=== PATIENT | male | born 1970 | race Caucasian/White ===

== ENCOUNTER 2024-06-12 11:55 | Inpatient (IN) ==
--- NOTE | 2024-06-12 12:21 | Emergency Department Note ---
Impression & Plan Chest pain, Hypertriglyceridemia, Liver mass, Elevated LFTs, Abnormal EKG ED Provider Note NAME: KIKE HARRINGTON AGE: 53 SEX: M : 1970 ARRIVES VIA: Walk-In INFORMANT: Patient, ED PROVIDER(S): Jose Francisco Ceballos DO CHIEF COMPLAINT: Chest Pain HPI: The patient is a 53-year-old male who presented to the emergency department directly from [facility] cardiology for an evaluation of chest pain. The patient describes anterior chest pain that goes into his jaw. He denies having any shortness of breath or leg swelling. He does feel very dizzy and lightheaded almost as though he may fall or pass out. The patient denies having any cardiac artery disease. He does have a history of hypertension and atrial fibrillation. He states he been compliant his outpatient medications. The patient went to see cardiology today and was sent directly to the emergency department ROS: See above HPI for pertinent positives & negatives. A total of 10 systems reviewed and were otherwise negative. PAST MEDICAL HISTORY: See Below PAST SURGICAL HISTORY: See Below FAMILY HISTORY: See Below SOCIAL HISTORY: See Below HOME MEDICATIONS: See Below ALLERGIES: See Below VITALS: See Below PHYSICAL EXAMINATION: GENERAL: Patient is awake alert in no acute distress patient is resting comfortably and showing no signs of anxiety EYES: The conjunctivae are clear. The pupils are round and reactive. EARS, NOSE, MOUTH AND THROAT: The nose is without any evidence of any deformity. NECK: The neck is nontender and supple. RESPIRATORY: Normal respiratory effort is noted there is no evidence of wheezing rhonchi or rales CARDIOVASCULAR: Regular rate and rhythm noted there no murmurs rubs or gallops normal S1 normal S2. GASTROINTESTINAL: The abdomen is soft. Abdomen is nontender. MUSCULOSKELETAL/EXTREMITIES: There is no evidence of gross deformity full range of motion is noted in the hips and shoulders. SKIN: There is no obvious evidence of any rash. There are no petechiae, pallor or cyanosis noted. NEUROLOGIC: Patient is awake alert and oriented x3 MEDICAL DECISION MAKING: The patient is a 53-year-old male who presented to the emergency department for an evaluation of chest pain. The patient was found to have hypertriglyceridemia. The patient was found to have signs of pancreatitis. The patient was having chest pain and was referred to the emergency department for further evaluation. Patient's EKG did show some T wave abnormalities. I discussed the patient's laboratory and radiographic studies with him. Given his findings I discussed his condition with the on-call [facility] hospitalist group. They have agreed to evaluate patient in the emergency department for further management and disposition. The patient was treated with pain medication emergency department. He was reevaluated multiple times. I discussed his condition with the [facility] supplier manager as well. Triage Nursing notes reviewed. Prior medical records reviewed Vital Signs: reviewed and remarkable for elevated blood pressure. Differential diagnosis: Cardiac ischemia, aortic dissection, pulmonary embolism, pneumothorax, pneumonia, pericarditis, myocarditis, esophageal rupture, GERD, cholecystitis, pancreatitis, musculoskeletal, as well as other pathologies. ER treatment provided: See below Diagnostics interpreted by me: ECG: EKG was obtained in the emergency department. My interpretation is normal sinus rhythm at [address] depressions were noted in the anterior and the lateral leads with T wave inversions noted in anterior leads. Cardiac Monitoring: An order was placed for continuous cardiac monitoring. The monitor shows a rate of 80 bpm with sinus rhythm. Laboratory studies: As stated above and show below. Imaging studies: See below. Radiographic imaging was reviewed by myself Consultation(s): I discussed this case with the on-call [facility] hospitalist. They have agreed to evaluate the patient in the emergency department. I discussed this case with Dr. Delatorre who is on-call for the [facility] cardiology group. Past Med/Surg History Problem List (Updated 06/12/24 @ 19:08 by Jyoti Villalpando PA-C) Elevated LFTs Thyroid nodule Liver mass Hypertriglyceridemia Abdominal pain Chest pain Nasal valve collapse Chronic rhinitis Medical History (Updated 06/12/24 @ 19:08 by Jyoti Villalpando PA-C) Obesity PTSD (post-traumatic stress disorder) PAF (paroxysmal atrial fibrillation) JACOB (obstructive sleep apnea) Hypertension Surgical History (Updated 06/12/24 @ 19:00 by Jyoti Villalpando PA-C) H/O gastric bypass Family History (Updated 06/12/24 @ 19:01 by Jyoti Villalpando PA-C) Father Heart disease Mother Diabetes Social History Smoking Status: Never smoker Hx Alcohol Use: Yes (12 beers daily) Hx Substance Use: No Feels Safe at Home: Yes Allergies Allergies Allergy/AdvReac Type Severity Reaction Status Date / Time No Known Allergies Allergy Unverified 06/12/24 17:14 Home Meds Home Medications Medication Instructions Recorded Confirmed apixaban 5 mg tablet (Eliquis) 5 mg PO BID 11/27/23 06/12/24 bupropion HCl 150 mg tablet,12 hr 150 mg PO DAILY 11/27/23 06/12/24 sustained-release (Wellbutrin SR) diltiazem HCl 120 mg capsule,24 120 mg PO DAILY 11/27/23 06/12/24 hr,extended release nebivolol 20 mg tablet (Bystolic) 20 mg PO DAILY 11/27/23 06/12/24 fenofibrate nanocrystallized 145 145 mg PO QAM 06/12/24 06/12/24 mg tablet levothyroxine 50 mcg tablet 50 mcg PO QAM 06/12/24 06/12/24 omeprazole 20 mg capsule,delayed 20 mg PO QAM 06/12/24 06/12/24 release Previous Rx's Medication Instructions Recorded azelastine 137 mcg (0.1 %) nasal 2 spray intranasal BID PRN nasal 11/27/23 spray congestion #30 mL fluticasone propionate 50 2 spray intranasal DAILY #16 grams 11/27/23 mcg/actuation nasal spray,suspension ipratropium bromide 21 mcg (0.03 2 spray intranasal TID PRN 11/27/23 %) nasal spray postnasal drip #30 mL Results & Data (ED) Vital Signs Vital Signs - 24 hr 06/12/24 12:00 06/12/24 12:45 06/12/24 12:45 Temperature 37.1 C Temperature Source Oral Pulse Rate 85 81 81 Pulse Rate from SpO2 Sensor 80 Respiratory Rate 18 21 Respiratory Effort / Characteristics Non-Labored Spontaneous Respiratory Depth Normal Respiratory Pattern Regular Blood Pressure 185/135 H Blood Pressure Mean 151 Blood Pressure Position Sitting Pulse Oximetry 96 100 Oxygen Delivery Method Room Air Sepsis Recent Fever Within 48 Hours No Sepsis New/Unexplained Change in Mental Status No Sepsis Action Taken by Nursing No Action Required 06/12/24 12:54 06/12/24 13:00 06/12/24 13:00 Temperature Temperature Source Pulse Rate 84 Pulse Rate from SpO2 Sensor 83 Respiratory Rate 15 Respiratory Effort / Characteristics Respiratory Depth Respiratory Pattern Blood Pressure 139/92 139/92 Blood Pressure Mean 106 106 Blood Pressure Position Pulse Oximetry 97 Oxygen Delivery Method Sepsis Recent Fever Within 48 Hours Sepsis New/Unexplained Change in Mental Status Sepsis Action Taken by Nursing 06/12/24 13:03 06/12/24 13:30 06/12/24 13:30 Temperature Temperature Source Pulse Rate 90 86 Pulse Rate from SpO2 Sensor 90 85 Respiratory Rate 19 16 Respiratory Effort / Characteristics Respiratory Depth Respiratory Pattern Blood Pressure 148/83 H Blood Pressure Mean 101 Blood Pressure Position Pulse Oximetry 96 96 Oxygen Delivery Method Sepsis Recent Fever Within 48 Hours Sepsis New/Unexplained Change in Mental Status Sepsis Action Taken by Nursing 06/12/24 13:45 06/12/24 13:47 06/12/24 13:47 Temperature Temperature Source Pulse Rate 86 Pulse Rate from SpO2 Sensor 86 Respiratory Rate 22 Respiratory Effort / Characteristics Respiratory Depth Respiratory Pattern Blood Pressure Blood Pressure Mean Blood Pressure Position Pulse Oximetry 94 Oxygen Delivery Method Room Air Room Air Sepsis Recent Fever Within 48 Hours Sepsis New/Unexplained Change in Mental Status Sepsis Action Taken by Nursing 06/12/24 14:15 06/12/24 14:21 06/12/24 14:36 Temperature Temperature Source Pulse Rate 84 83 82 Pulse Rate from SpO2 Sensor 83 Respiratory Rate 16 13 Respiratory Effort / Characteristics Respiratory Depth Respiratory Pattern Blood Pressure Blood Pressure Mean Blood Pressure Position Pulse Oximetry 96 Oxygen Delivery Method Sepsis Recent Fever Within 48 Hours Sepsis New/Unexplained Change in Mental Status Sepsis Action Taken by Nursing 06/12/24 14:42 06/12/24 14:57 06/12/24 15:00 Temperature Temperature Source Pulse Rate 83 83 Pulse Rate from SpO2 Sensor 85 84 Respiratory Rate 19 13 Respiratory Effort / Characteristics Respiratory Depth Respiratory Pattern Blood Pressure 135/83 Blood Pressure Mean 102 Blood Pressure Position Pulse Oximetry 96 95 Oxygen Delivery Method Sepsis Recent Fever Within 48 Hours Sepsis New/Unexplained Change in Mental Status Sepsis Action Taken by Nursing 06/12/24 15:30 06/12/24 15:39 06/12/24 15:42 Temperature Temperature Source Pulse Rate 85 86 Pulse Rate from SpO2 Sensor 85 86 Respiratory Rate 15 17 Respiratory Effort / Characteristics Respiratory Depth Respiratory Pattern Blood Pressure 155/95 H Blood Pressure Mean 132 Blood Pressure Position Pulse Oximetry 96 98 Oxygen Delivery Method Sepsis Recent Fever Within 48 Hours Sepsis New/Unexplained Change in Mental Status Sepsis Action Taken by Nursing 06/12/24 15:51 06/12/24 15:57 06/12/24 16:01 Temperature Temperature Source Pulse Rate 86 83 Pulse Rate from SpO2 Sensor 85 83 Respiratory Rate 18 15 Respiratory Effort / Characteristics Respiratory Depth Respiratory Pattern Blood Pressure 167/101 H Blood Pressure Mean 116 Blood Pressure Position Pulse Oximetry 99 96 Oxygen Delivery Method Sepsis Recent Fever Within 48 Hours Sepsis New/Unexplained Change in Mental Status Sepsis Action Taken by Nursing 06/12/24 16:27 06/12/24 16:30 06/12/24 16:47 Temperature Temperature Source Pulse Rate 84 84 Pulse Rate from SpO2 Sensor 84 Respiratory Rate 15 Respiratory Effort / Characteristics Respiratory Depth Respiratory Pattern Blood Pressure 165/91 H Blood Pressure Mean 107 Blood Pressure Position Pulse Oximetry 95 Oxygen Delivery Method Sepsis Recent Fever Within 48 Hours Sepsis New/Unexplained Change in Mental Status Sepsis Action Taken by Nursing 06/12/24 16:48 06/12/24 16:51 06/12/24 17:00 Temperature Temperature Source Pulse Rate 85 84 Pulse Rate from SpO2 Sensor 86 84 Respiratory Rate 14 13 Respiratory Effort / Characteristics Respiratory Depth Respiratory Pattern Blood Pressure 169/91 H Blood Pressure Mean 118 Blood Pressure Position Pulse Oximetry 95 96 Oxygen Delivery Method Sepsis Recent Fever Within 48 Hours Sepsis New/Unexplained Change in Mental Status Sepsis Action Taken by Nursing 06/12/24 17:00 06/12/24 17:00 06/12/24 17:00 Temperature Temperature Source Pulse Rate Pulse Rate from SpO2 Sensor Respiratory Rate Respiratory Effort / Characteristics Respiratory Depth Respiratory Pattern Blood Pressure 169/91 H 169/91 H 169/91 H Blood Pressure Mean 118 118 118 Blood Pressure Position Pulse Oximetry Oxygen Delivery Method Sepsis Recent Fever Within 48 Hours Sepsis New/Unexplained Change in Mental Status Sepsis Action Taken by Nursing 06/12/24 17:00 06/12/24 17:03 06/12/24 17:12 Temperature Temperature Source Pulse Rate 86 88 Pulse Rate from SpO2 Sensor 89 91 H Respiratory Rate 13 13 Respiratory Effort / Characteristics Respiratory Depth Respiratory Pattern Blood Pressure 169/91 H Blood Pressure Mean 118 Blood Pressure Position Pulse Oximetry 95 93 Oxygen Delivery Method Sepsis Recent Fever Within 48 Hours Sepsis New/Unexplained Change in Mental Status Sepsis Action Taken by Nursing 06/12/24 17:18 06/12/24 17:31 06/12/24 17:31 Temperature Temperature Source Pulse Rate 90 Pulse Rate from SpO2 Sensor 91 H Respiratory Rate Respiratory Effort / Characteristics Respiratory Depth Respiratory Pattern Blood Pressure 170/94 H 170/94 H Blood Pressure Mean 117 117 Blood Pressure Position Pulse Oximetry 96 Oxygen Delivery Method Sepsis Recent Fever Within 48 Hours Sepsis New/Unexplained Change in Mental Status Sepsis Action Taken by Nursing 06/12/24 17:31 06/12/24 17:48 06/12/24 17:51 Temperature Temperature Source Pulse Rate 90 88 Pulse Rate from SpO2 Sensor 92 H 88 Respiratory Rate 18 17 Respiratory Effort / Characteristics Respiratory Depth Respiratory Pattern Blood Pressure 170/94 H Blood Pressure Mean 117 Blood Pressure Position Pulse Oximetry 96 96 Oxygen Delivery Method Sepsis Recent Fever Within 48 Hours Sepsis New/Unexplained Change in Mental Status Sepsis Action Taken by Intermediate Medications Current Medication List: was personally reviewed by me Laboratory Data Attestation: I reviewed the patient's lab results. 06/12/24 12:21 06/12/24 16:39 Lab Results 06/12/24 06/12/24 06/12/24 Range/Units 12:21 14:30 16:39 WBC 3.79 L (4.8-10.8) K/ul RBC 3.96 L (4.70-6.10) M/uL Hgb 13.6 L (14.0-18.0) g/dl Hct 36.5 L (42.0-52.0) % MCV 92.2 (80.0-100.0) fL MCH 34.3 H (25.0-34.0) pg MCHC 37.3 H (32.0-36.0) g/dL RDW Std Deviation 52.6 H (36.4-46.3) fL RDW Coeff of Ace 15.6 H (11.5-14.5) % Plt Count 233 (130-400) K/uL MPV 9.3 L (9.4-12.4) fL Immature Gran % (Auto) 0.3 % Neut % (Auto) 50.9 % Lymph % (Auto) 36.7 % Webb % (Auto) 10.8 % Eos % (Auto) 0.5 % Baso % (Auto) 0.8 % Neut # (Auto) 1.93 (1.40-6.50) K/uL Lymph # (Auto) 1.39 (1.20-3.40) K/uL Webb # (Auto) 0.41 (0.11-0.59) K/uL Eos # (Auto) 0.02 (0.00-0.50) K/uL Baso # (Auto) 0.03 (0.00-0.20) K/uL Immature Gran # (Auto) 0.01 (0.01-0.20) K/uL Target Cells 2+ PT 11.2 (9.0-12.0) Seconds INR 1.0 (0.9-1.1) APTT 28 (21-31) Seconds PTT Ratio 1.0 Sodium Cancelled Cancelled 132 L Potassium Cancelled Cancelled 4.0 Chloride Cancelled Cancelled 94 L Carbon Dioxide Cancelled Cancelled 28 Anion Gap Cancelled Cancelled 10 BUN Cancelled Cancelled 13 Creatinine Cancelled Cancelled 0.87 Est Cr Clr Drug Dosing Cancelled Cancelled Not Reportable eGFR Cancelled Cancelled 102.54 BUN/Creatinine Ratio Cancelled Cancelled 14.9 Glucose Cancelled Cancelled 103 H Calcium Cancelled Cancelled 8.7 Total Bilirubin Cancelled Cancelled 1.8 H AST Cancelled Cancelled 158 H ALT Cancelled Cancelled 66 H Alkaline Phosphatase Cancelled Cancelled 112 H Troponin I High Sens Cancelled 3.6 Total Protein Cancelled Cancelled 6.3 Albumin Cancelled Cancelled 3.1 L Globulin Cancelled Cancelled 3.2 Albumin/Globulin Ratio Cancelled Cancelled 1.0 Lipase Cancelled 149 H 06/12/24 06/12/24 Range/Units 18:39 18:39 WBC (4.8-10.8) K/ul RBC (4.70-6.10) M/uL Hgb (14.0-18.0) g/dl Hct (42.0-52.0) % MCV (80.0-100.0) fL MCH (25.0-34.0) pg MCHC (32.0-36.0) g/dL RDW Std Deviation (36.4-46.3) fL RDW Coeff of Ace (11.5-14.5) % Plt Count (130-400) K/uL MPV (9.4-12.4) fL Immature Gran % (Auto) % Neut % (Auto) % Lymph % (Auto) % Webb % (Auto) % Eos % (Auto) % Baso % (Auto) % Neut # (Auto) (1.40-6.50) K/uL Lymph # (Auto) (1.20-3.40) K/uL Webb # (Auto) (0.11-0.59) K/uL Eos # (Auto) (0.00-0.50) K/uL Baso # (Auto) (0.00-0.20) K/uL Immature Gran # (Auto) (0.01-0.20) K/uL Target Cells PT (9.0-12.0) Seconds INR (0.9-1.1) APTT (21-31) Seconds PTT Ratio Sodium Potassium Chloride Carbon Dioxide Anion Gap BUN Creatinine Est Cr Clr Drug Dosing eGFR BUN/Creatinine Ratio Glucose Calcium Total Bilirubin AST ALT Alkaline Phosphatase Troponin I High Sens 4.5 Cancelled Total Protein Albumin Globulin Albumin/Globulin Ratio Lipase Administered Medications Lactated Ringer's (Lr) 1,000 mls @ 200 mls/hr IV .Q5H JOSIAH Stop: 06/13/24 18:44 Last Admin: 06/12/24 18:54 Dose: 200 mls/hr Documented By: NAOMIE Discontinued Medications Aspirin (Aspirin Chew 324 Mg) 324 mg PO NOW STA Stop: 06/12/24 12:19 Last Admin: 06/12/24 12:52 Dose: 324 mg Documented By: NAOMIE Pantoprazole Sodium (Protonix) 40 mg in 10 mls @ 5 mls/min IV NOW ONE Stop: 06/12/24 14:08 Last Admin: 06/12/24 14:15 Dose: 5 mls/min Documented By: NAOMIE Famotidine (Pepcid 20mg Iv Push) 20 mg in 5 mls @ 2.5 mls/min IV NOW STA Stop: 06/12/24 14:08 Last Admin: 06/12/24 14:15 Dose: 2.5 mls/min Documented By: NAOMIE Thiamine HCl 100 mg/ Syringe 10 mls @ 2 mls/min IV NOW STA Stop: 06/12/24 18:45 Last Admin: 06/12/24 19:43 Dose: 2 mls/min Documented By: KALLI Folic Acid 1 mg/ Syringe 10 mls @ 5 mls/min IV NOW STA Stop: 06/12/24 18:42 Last Admin: 06/12/24 19:42 Dose: 5 mls/min Documented By: KALLI Ioversol (Optiray 320 125ml) 118 ml IV ONCE ONE Stop: 06/12/24 16:11 Last Admin: 06/12/24 16:10 Dose: 118 ml Documented By: JONAH Lorazepam (Lorazepam 1 Mg Tab) 1 mg SL NOW STA Stop: 06/12/24 18:40 Last Admin: 06/12/24 18:48 Dose: 1 mg Documented By: NAOMIE Morphine Sulfate (Morphine Sulfate 4 Mg/Ml 1 Ml Carp\Vial) 4 mg IV NOW STA Stop: 06/12/24 12:19 Last Admin: 06/12/24 12:52 Dose: 4 mg Documented By: NAOMIE Nitroglycerin (Nitroglycerin Sl 0.4 Mg/Tab Tab) 0.4 mg SL NOW STA Stop: 06/12/24 12:19 Last Admin: 06/12/24 12:52 Dose: 0.4 mg Documented By: NAOMIE Ondansetron HCl (Ondansetron Inj 2 Mg/Ml 2 Ml Vial) 4 mg IV NOW STA Stop: 06/12/24 12:19 Last Admin: 06/12/24 12:52 Dose: 4 mg Documented By: NAOMIE Imaging Data Attestation: I personally reviewed and interpreted this imaging study as follows: My Impression: 1 view chest x-ray was obtained in the emergency department. My interpretation is no free air or definite infiltrate, final report below. Radiologist's Impression: Chest X-Ray 06/12/24 12:03 XR chest 1V portable CLINICAL HISTORY: Chest pain, nonspecific COMPARISON STUDY: None FINDINGS: Heart size and pulmonary vasculature are normal. No effusion, consolidation, or pneumothorax. IMPRESSION: No acute findings. ACT 112: Negative or not required by law. Electronically signed by: Trey Coronado M.D. 06/12/2024 12:33 PM Abdomen/Pelvis CT 06/12/24 14:03 EXAM: CT Angiography Chest and CT Abdomen and Pelvis With Intravenous Contrast INDICATION: Pain TECHNIQUE: Axial computed tomographic angiography images of the chest and axial computed tomography images of the abdomen and pelvis with intravenous contrast. Sagittal and coronal reformatted images were created and reviewed. This CT exam was performed using one or more of the following dose reduction techniques: automated exposure control, adjustment of the mA and/or kV according to patient size, and/or use of iterative reconstruction technique. MIP reconstructed images were created and reviewed. CONTRAST: 118ml of Optiray 320 was administered intravenously. COMPARISON: No relevant prior studies available. FINDINGS: CHEST: Aorta: No acute change noted. No thoracic aortic aneurysm or dissection. Pulmonary arteries: No significant abnormality noted. No pulmonary embolism is identified. Great vessels of aortic arch: No acute change noted. No dissection. No arterial occlusion or significant stenosis. Lungs and pleural spaces: No abnormality noted. No mass. No consolidation. No significant effusion. No pneumothorax. Heart: No abnormality noted. No cardiomegaly. No significant pericardial effusion. Thyroid: There is a 2.0 x 1.7 cm right thyroid nodule. ABDOMEN: Liver: There is marked fatty change of the liver. There is an irregular lobulated enhancing mass in the left lobe measuring 6.2 cm transverse by 3.9 cm AP by 5.5 cm long. Gallbladder and bile ducts: No abnormality noted. No calcified stones. No ductal dilation. Pancreas: No abnormality noted. No ductal dilation. No mass. Spleen: No abnormality noted. No splenomegaly. Adrenals: There is a 1.4 x 1.2 cm left adrenal nodule with density measurements slightly greater than expected for an adenoma. The right appears normal. Kidneys and ureters: Simple left renal cyst/s. No simple cyst follow-up necessary. Right kidney appears normal. No renal stone, hydronephrosis or perinephric fluid. The right kidney appears normal. No solid mass. Stomach and bowel: Postoperative changes of the stomach noted. Staple lines are well defined without thickening or adjacent inflammation. No intestinal obstruction. PELVIS: Appendix: Well seen and appears normal. Bladder: There is mild thickening of the urinary bladder which is incompletely distended. Reproductive: No significant abnormality noted. CHEST, ABDOMEN and PELVIS: Intraperitoneal space: No abnormality noted. No significant fluid collection. No free air. Bones/joints: Degenerative changes noted throughout the spine. No acute osseous abnormality seen. Soft tissues: There are small bilateral fat containing inguinal hernias. Lymph nodes: No abnormality noted. No enlarged lymph nodes. IMPRESSION: 1. Left hepatic lobe mass concerning for neoplasm. 2. No pulmonary embolus5 or aortic dissection. 3. There is a 2.0 x 1.7 cm right thyroid nodule. Ultrasound recommended if not already known. 4. 1.4 cm greatest diameter left adrenal nodule probably an adenoma but somewhat more dense than typical. If there is no history of malignancy consider a follow-up low dose, non-contrast adrenal CT or chemical-shift adrenal MRI in 12 months. If there is a history of malignancy recommend a low dose, non-emergent, non-contrast adrenal CT or chemical-shift adrenal MRI follow-up study. 5. There is mild thickening of the urinary bladder which is incompletely distended. Correlate with urinalysis for cystitis. ACT 112: Negative or not required by law. Electronically signed by Ghislaine Jasmine 06-12-2024 4:36 PM Chest CTA 06/12/24 14:03 EXAM: CT Angiography Chest and CT Abdomen and Pelvis With Intravenous Contrast INDICATION: Pain TECHNIQUE: Axial computed tomographic angiography images of the chest and axial computed tomography images of the abdomen and pelvis with intravenous contrast. Sagittal and coronal reformatted images were created and reviewed. This CT exam was performed using one or more of the following dose reduction techniques: automated exposure control, adjustment of the mA and/or kV according to patient size, and/or use of iterative reconstruction technique. MIP reconstructed images were created and reviewed. CONTRAST: 118ml of Optiray 320 was administered intravenously. COMPARISON: No relevant prior studies available. FINDINGS: CHEST: Aorta: No acute change noted. No thoracic aortic aneurysm or dissection. Pulmonary arteries: No significant abnormality noted. No pulmonary embolism is identified. Great vessels of aortic arch: No acute change noted. No dissection. No arterial occlusion or significant stenosis. Lungs and pleural spaces: No abnormality noted. No mass. No consolidation. No significant effusion. No pneumothorax. Heart: No abnormality noted. No cardiomegaly. No significant pericardial effusion. Thyroid: There is a 2.0 x 1.7 cm right thyroid nodule. ABDOMEN: Liver: There is marked fatty change of the liver. There is an irregular lobulated enhancing mass in the left lobe measuring 6.2 cm transverse by 3.9 cm AP by 5.5 cm long. Gallbladder and bile ducts: No abnormality noted. No calcified stones. No ductal dilation. Pancreas: No abnormality noted. No ductal dilation. No mass. Spleen: No abnormality noted. No splenomegaly. Adrenals: There is a 1.4 x 1.2 cm left adrenal nodule with density measurements slightly greater than expected for an adenoma. The right appears normal. Kidneys and ureters: Simple left renal cyst/s. No simple cyst follow-up necessary. Right kidney appears normal. No renal stone, hydronephrosis or perinephric fluid. The right kidney appears normal. No solid mass. Stomach and bowel: Postoperative changes of the stomach noted. Staple lines are well defined without thickening or adjacent inflammation. No intestinal obstruction. PELVIS: Appendix: Well seen and appears normal. Bladder: There is mild thickening of the urinary bladder which is incompletely distended. No stones or gas. Reproductive: No significant abnormality noted. CHEST, ABDOMEN and PELVIS: Intraperitoneal space: No abnormality noted. No significant fluid collection. No free air. Bones/joints: Degenerative changes noted throughout the spine. No acute osseous abnormality seen. Soft tissues: There are small bilateral fat containing inguinal hernias. Lymph nodes: No abnormality noted. No enlarged lymph nodes. IMPRESSION: 1. Left hepatic lobe mass concerning for neoplasm. 2. No pulmonary embolus or aortic dissection. 3. There is a 2.0 x 1.7 cm right thyroid nodule. Ultrasound recommended if not already known. 4. 1.4 cm greatest diameter left adrenal nodule probably an adenoma but somewhat more dense than typical. If there is no history of malignancy consider a follow-up low dose, non-contrast adrenal CT or chemical-shift adrenal MRI in 12 months. If there is a history of malignancy recommend a low dose, non-emergent, non-contrast adrenal CT or chemical-shift adrenal MRI follow-up study. 5. There is mild thickening of the urinary bladder which is incompletely distended. Correlate with urinalysis for cystitis. ACT 112: Negative or not required by law. Electronically signed by Ghislaine Jasmine 06-12-2024 4:36 PM Discharge Plan Visit Data Chief Complaint: Chest Pain Stated Complaint: HIGH BP, CHEST PAIN ED Provider: Jose Francisco Ceballos Discharge Problem: Chest pain, Hypertriglyceridemia, Liver mass, Elevated LFTs, Abnormal EKG Patient Disposition: Being Evaluated by Hospitalist Forms Stand Alone Forms: My [facility] Prescriptions Prescriptions: No Action diltiazem HCl 120 mg capsule,extended release 24 hr 120 mg PO DAILY Eliquis 5 mg tablet 5 mg PO BID nebivolol [Bystolic] 20 mg tablet 20 mg PO DAILY bupropion HCl [Wellbutrin SR] 150 mg tablet sustained-release 12 hr 150 mg PO DAILY azelastine 137 mcg (0.1 %) spray,non-aerosol 2 spray intranasal BID PRN (Reason: nasal congestion) Qty: 30 11RF Rx Instructions: administer into each nostril fluticasone propionate 50 mcg/actuation spray,suspension 2 spray intranasal DAILY Qty: 16 11RF Rx Instructions: administer into each nostril ipratropium bromide 21 mcg (0.03 %) spray,non-aerosol 2 spray intranasal TID PRN (Reason: postnasal drip) Qty: 30 11RF Rx Instructions: administer into each nostril levothyroxine 50 mcg tablet 50 mcg PO QAM omeprazole 20 mg capsule,delayed release(DR/EC) 20 mg PO QAM fenofibrate nanocrystallized 145 mg tablet 145 mg PO QAM Referrals Referrals: PCP,NO [Physician] -
--- NOTE | 2024-06-12 12:34 | XRay Report ---
XR chest 1V portable CLINICAL HISTORY: Chest pain, nonspecific COMPARISON STUDY: None FINDINGS: Heart size and pulmonary vasculature are normal. No effusion, consolidation, or pneumothora x. IMPRESSION: No acute findings. ACT 112: Negative or not required by law. Electronically signed by: Trey Coronado M.D. 06/12/2024 12:33 PM
[2024-06-12 12:46] LABS: Mean Platelet Volume 9.3 fL (9.4-12.4); Platelet Count 233 K/uL (130-400); White Blood Count 3.79 K/ul (4.8-10.8)
[2024-06-12] MEDS: ASPIRIN CHEW 324 MG PO STA (12:52)
[2024-06-12] MEDS: NITROGLYCERIN SL 0.4 MG/TAB TAB SL STA (12:52)
[2024-06-12] MEDS: ONDANSETRON INJ 2 MG/ML 2 ML VIAL IV STA (12:52)
[2024-06-12] MEDS: MoRPHine SULFATE 4 MG/ML 1 ML CARP\\VIAL IV STA (12:52)
[2024-06-12 13:16] LABS: Hematocrit (blood only) 36.5 % (42.0-52.0); Hemoglobin 13.6 g/dl (14.0-18.0); Mean Corpuscular Hemoglobin 34.3 pg (25.0-34.0); Mean Corpuscular Hgb Conc 37.3 g/dL (32.0-36.0); Mean Corpuscular Volume 92.2 fL (80.0-100.0); RDW Coefficient of Variation 15.6 % (11.5-14.5); RDW Standard Deviation 52.6 fL (36.4-46.3); Red Blood Count 3.96 M/uL (4.70-6.10)
[2024-06-12 13:20] LABS: Basophils # (auto) 0.03 K/uL (0.00-0.20); Basophils % (auto) 0.8 %; Eosinophils # (auto) 0.02 K/uL (0.00-0.50); Eosinophils % (auto) 0.5 %; Immature Granulocytes # (auto) 0.01 K/uL (0.01-0.20); Immature Granulocytes % (auto) 0.3 %; Lymphocytes # (auto) 1.39 K/uL (1.20-3.40); Lymphocytes % (auto) 36.7 %; Monocytes # (auto) 0.41 K/uL (0.11-0.59); Monocytes % (auto) 10.8 %; Neutrophils # (auto) 1.93 K/uL (1.40-6.50); Neutrophils % (auto) 50.9 %; Target Cells 2+
[2024-06-12] MEDS: FAMOTIDINE 20MG IV PUSH 20 MG/5 ML SYR IV STA (14:15)
[2024-06-12] MEDS: PANTOprazole 40 MG/10 ML SYR IV ONE (14:15)
[2024-06-12 15:55] LABS: Troponin I High Sensitivity 3.6 pg/ml (0-20)
[2024-06-12 16:07] LABS: Partial Thromboplastin Time 28 Seconds (21-31); Prothrombin Time 11.2 Seconds (9.0-12.0)
[2024-06-12] MEDS: OPTIRAY 320 125ml IV ONE (16:10)
--- NOTE | 2024-06-12 16:36 | CT Scan Report ---
EXAM: CT Angiography Chest and CT Abdomen and Pelvis With Intravenous Contrast INDICATION: Pain TECHNIQUE: Axial computed tomographic angiography images of the chest and axial computed tomography images of the abdomen and pelvis with intravenous contrast. Sagittal and coronal reformatted images were created and reviewed. This CT exam was performed using one or more of the following dose reduction techniques: automated exposure control, adjustment of the mA and/or kV according to patient size, and/or use of iterative reconstruction technique. MIP reconstructed images were created and reviewed. CONTRAST: 118ml of Optiray 320 was administered intravenously. COMPARISON: No relevant prior studies available. FINDINGS: CHEST: Aorta: No acute change noted. No thoracic aortic aneurysm or dissection. Pulmonary arteries: No significant abnormality noted. No pulmonary embolism is identified. Great vessels of aortic arch: No acute change noted. No dissection. No arterial occlusion or significant stenosis. Lungs and pleural spaces: No abnormality noted. No mass. No consolidation. No significant effusion. No pneumothorax. Heart: No abnormality noted. No cardiomegaly. No significant pericardial effusion. Thyroid: There is a 2.0 x 1.7 cm right thyroid nodule. ABDOMEN: Liver: There is marked fatty change of the liver. There is an irregular lobulated enhancing mass in the left lobe measuring 6.2 cm transverse by 3.9 cm AP by 5.5 cm long. Gallbladder and bile ducts: No abnormality noted. No calcified stones. No ductal dilation. Pancreas: No abnormality noted. No ductal dilation. No mass. Spleen: No abnormality noted. No splenomegaly. Adrenals: There is a 1.4 x 1.2 cm left adrenal nodule with density measurements slightly greater than expected for an adenoma. The right appears normal. Kidneys and ureters: Simple left renal cyst/s. No simple cyst follow-up necessary. Right kidney appears normal. No renal stone, hydronephrosis or perinephric fluid. The right kidney appears normal. No solid mass. Stomach and bowel: Postoperative changes of the stomach noted. Staple lines are well defined without thickening or adjacent inflammation. No intestinal obstruction. PELVIS: Appendix: Well seen and appears normal. Bladder: There is mild thickening of the urinary bladder which is incompletely distended. No stones or gas. Reproductive: No significant abnormality noted. CHEST, ABDOMEN and PELVIS: Intraperitoneal space: No abnormality noted. No significant fluid collection. No free air. Bones/joints: Degenerative changes noted throughout the spine. No acute osseous abnormality seen. Soft tissues: There are small bilateral fat containing inguinal hernias. Lymph nodes: No abnormality noted. No enlarged lymph nodes. IMPRESSION: 1. Left hepatic lobe mass concerning for neoplasm. 2. No pulmonary embolus or aortic dissection. 3. There is a 2.0 x 1.7 cm right thyroid nodule. Ultrasound recommended if not already known. 4. 1.4 cm greatest diameter left adrenal nodule probably an adenoma but somewhat more dense than typical. If there is no history of malignancy consider a follow-up low dose, non-contrast adrenal CT or chemical-shift adrenal MRI in 12 months. If there is a history of malignancy recommend a low dose, non-emergent, non-contrast adrenal CT or chemical-shift adrenal MRI follow-up study. 5. There is mild thickening of the urinary bladder which is incompletely distended. Correlate with urinalysis for cystitis. ACT 112: Negative or not required by law. Electronically signed by Ghislaine Jasmine 06-12-2024 4:36 PM
[2024-06-12 17:28] LABS: Albumin Level 3.1 gm/dl (3.4-5.0); Anion Gap 10 (3-11); Bilirubin,Total 1.8 mg/dl (0.2-1.0); Calcium 8.7 mg/dl (8.6-10.3); Carbon Dioxide 28 mmol/L (21-32); Chloride 94 mmol/L (98-107); Sodium 132 mmol/L (136-145)
[2024-06-12 17:34] LABS: Alanine Aminotransferase 66 U/L (7-52); Alkaline Phosphatase 112 U/L (34-104); Aspartate Aminotransferase 158 U/L (13-39); BUN Creatinine Ratio 14.9 (10-20); Blood Urea Nitrogen 13 mg/dl (6-23); Globulin 3.2 gm/dl (2.5-4.0); Glucose 103 mg/dl (70-99(Fasting)); Total Protein 6.3 gm/dl (6.0-8.3)
--- NOTE | 2024-06-12 17:49 | History & Physical Report ---
Date of Service June 12, 2024 Assessment & Plan (1) Chest pain: Plan: Patient is 53 year old male with PMH paroxysmal atrial fibrillation, anticoagulated on Eliquis, HTN, obesity s/p gastric bypass 03/2022, prior history DM II that has improved since weight loss and reports is now prediabetic, PTSD, JACOB, ETOH abuse presented to ER with c/o chest pain today. CT chest: No PE or aortic dissection. R/O ACS. Risk factors: HTN, hyperlipidemia, DM, obesity, FH CP is reported intermittent. Reports continued palpitations and reports anxiety. Current sinus rhythm on monitor without noted ectopy EKG sinus rhythm, no acute ST elevation In ER given aspirin 324mg po, 1 SL nitro and morphine 4mg IV with temporary reported improvement Monitor Vitals Repeat EKG in am Will trend troponin Echo Cardiology consult (2) Abdominal pain: (3) Elevated LFTs: Plan: Intermittent abdominal pain past week Denies current abdominal pain CT abd/pelvis: 1.Left hepatic lobe mass concerning for neoplasm. 2. No pulmonary embolus5 or aortic dissection. 3. There is a 2.0 x 1.7 cm right thyroid nodule. Ultrasound recommended if not already known. 4. 1.4 cm greatest diameter left adrenal nodule probably an adenoma but somewhat more dense than typical. If there is no history of malignancy consider a follow-up low dose, non-contrast adrenal CT or chemical-shift adrenal MRI in 12 months. If there is a history of malignancy recommend a low dose, non-emergent, non-contrast adrenal CT or chemical-shift adrenal MRI follow-up study. 5. There is mild thickening of the urinary bladder which is incompletely distended. Correlate with urinalysis for cystitis. Today Lipase: 149. T Bili: 1.8. AST:158. ALT: 66. Alk Phos: 112. INR: 1.0 (06/05/24: lipase: 534, T. bili: 1.7, AST: 499, ALT: 144, alk phos: 115) NPO LR CBC, CMP, lipase in am GI consult May need further abdominal imaging #ETOH Abuse Drinks 12 beers daily Alcohol withdrawal protocol with gabapentin and Ativan IV thiamine and IV folic acid for now. Plan to convert to oral and add multivitamin when able Seizure precautions (4) Hypertriglyceridemia: Plan: Outpatient labs 06/05/2024: Triglycerides >4425, total cholesterol: 1323, HDL <3, LDL: 55, lipase: 534, T. bili: 1.7, AST: 499, ALT: 144, alk phos: 115 Triglyceride level pending Continue fenofibrate for now NPO Discussed on phone with fire tender, Dr Delatorre who had been doing outpatient workup and reports had spoke to lipidologist at [facility] who discussed risk of pancreatitis and patient may require plasmapheresis if not improving (5) Liver mass: Plan: CT Abd/pelvis: 1.4 cm greatest diameter left adrenal nodule probably an adenoma but somewhat more dense than typical. If there is no history of malignancy consider a follow-up low dose, non-contrast adrenal CT or chemical-shift adrenal MRI in 12 months. If there is a history of malignancy recommend a low dose, non-emergent, non-contrast adrenal CT or chemical-shift adrenal MRI follow-up study. Will hold home Eliquis at this time in case biopsy GI consult Oncology consult (6) PAF (paroxysmal atrial fibrillation): Plan: Anticoagulated on Eliquis Current sinus rhythm Hold Eliquis Continue nebivolol, diltiazem (7) Hypertension: Plan: Continue nebivolol, diltiazem (8) JACOB (obstructive sleep apnea): Plan: CPAP HS (9) PTSD (post-traumatic stress disorder): Plan: Continue bupropion (10) Obesity: Plan: S/P gastric bypass Gained 45 pounds in past 9 months (11) Thyroid nodule: Plan: CT Chest: There is a 2.0 x 1.7 cm right thyroid nodule. will need non emergent ultrasound to follow up DVT Prophylaxis SCDs Admit PCU Full Code as per discussion with pt Follows with Dr Duke for routine care Pt was seen and care coordinated with Dr Wallace. See addendum I spent a total of 60 minutes reviewing notes, outpatient records, labs, medication, coordinating, documenting and providing care for this patient excluding time spent in the performance of separately billed services and excluding time spent by another provider/QHP. History of Present Illness Chief Complaint: abdominal pain, chest pain Primary Care Provider: Radha Duke DO Patient is 53 year old male with PMH paroxysmal atrial fibrillation, anticoagulated on Eliquis, HTN, obesity s/p gastric bypass 03/2022, prior history DM II that has improved since weight loss and reports is now prediabetic, PTSD, JACOB, ETOH abuse presented to ER with c/o chest pain today. Patient states this morning sitting at desk and he felt lightheaded like he was going pass out he also reported chest pain to left side of chest. He describes pain as ache and states pain is intermittent. He also reports some left jaw numbness sensation that is intermittent. CP rated 4 out of 10 on pain scale. He reports intermittent palpitations and feels palpitations occur with the chest pain. Patient also complains of upper abdominal pain for past week that he describes as "mild" and he feels like pain is intermittent. States always feels cold and has chills but denies any known fever. Reports past 9 months gained 45 pounds. Consumes 8-12 beers daily. Last drink was yesterday. In past history tremors with ETOH withdrawal and states drinks more and tremors resolve. Denies history seizure or hallucinations. Reports been eating hard candy recently. [facility] work. Family still in [place]. Denies fever, N/V/D/C, PLASENCIA, syncope, vision changes, neck pain, SOB, orthopnea, cough, sore throat, otalgia, rhinorrhea, paresthesias, weakness, extremity weakness, extremity edema, rashes, urinary symptoms. Denies history pancreatitis, DVT, PE. In ER given nitro and patient reports minimal relief and states given morphine and felt that helped with chest pain. States CP is intermittent. Currently rates pain 5 out of 10 on pain scale. Denies any jaw discomfort or numbness currently. States still feels like having palpitations and patient states that he feels anxious. He reports a lot of stress and anxiety with his job as well as being away from family. Per outpatient chart review was seen in cardiology clinic today 06/11/2024. He was started on fenofibrate couple of days ago. Outpatient labs 06/05/2024: Triglycerides >4425, total cholesterol: 1323, HDL <3, LDL: 55, lipase: 534, T. bili: 1.7, AST: 499, ALT: 144, alk phos: 115 WBC: 7.4 Hgb: 13.9 A1c: 5.9 TSH: 4.5, free T4: 0.7 Allergies Allergy/AdvReac Type Severity Reaction Status Date / Time No Known Allergies Allergy Unverified 06/12/24 17:14 Home Medications Medication Instructions Recorded Confirmed Type apixaban 5 mg tablet (Eliquis) 5 mg PO BID 11/27/23 06/12/24 History azelastine 137 mcg (0.1 %) nasal 2 spray intranasal BID PRN nasal 11/27/23 06/12/24 Rx spray congestion #30 mL bupropion HCl 150 mg tablet,12 hr 150 mg PO DAILY 11/27/23 06/12/24 History sustained-release (Wellbutrin SR) diltiazem HCl 120 mg capsule,24 120 mg PO DAILY 11/27/23 06/12/24 History hr,extended release fluticasone propionate 50 2 spray intranasal DAILY #16 grams 11/27/23 06/12/24 Rx mcg/actuation nasal spray,suspension ipratropium bromide 21 mcg (0.03 2 spray intranasal TID PRN 11/27/23 06/12/24 Rx %) nasal spray postnasal drip #30 mL nebivolol 20 mg tablet (Bystolic) 20 mg PO DAILY 11/27/23 06/12/24 History fenofibrate nanocrystallized 145 145 mg PO QAM 06/12/24 06/12/24 History mg tablet levothyroxine 50 mcg tablet 50 mcg PO QAM 06/12/24 06/12/24 History omeprazole 20 mg capsule,delayed 20 mg PO QAM 06/12/24 06/12/24 History release Past Med/Surg History Problem List (Updated 06/12/24 @ 19:08 by Jyoti Villalpando PA-C) Elevated LFTs Thyroid nodule Liver mass Hypertriglyceridemia Abdominal pain Chest pain Nasal valve collapse Chronic rhinitis Medical History (Updated 06/12/24 @ 19:08 by Jyoti Villalpando PA-C) Obesity PTSD (post-traumatic stress disorder) PAF (paroxysmal atrial fibrillation) JACOB (obstructive sleep apnea) Hypertension Surgical History (Updated 06/12/24 @ 19:00 by Jyoti Villalpando PA-C) H/O gastric bypass Family History (Updated 06/12/24 @ 19:01 by Jyoti Villalpando PA-C) Father Heart disease Mother Diabetes Social History Smoking Status: Never smoker Hx Alcohol Use: Yes (12 beers daily) Hx Substance Use: No Feels Safe at Home: Yes Review of Systems Review of Systems: All systems reviewed & are unremarkable except as noted in HPI & below Physical Exam Physical Exam: PE per Dr Wallace Results & Data Results & Data Vital Signs (Past 12 Hours) Vital Signs Temp Pulse Resp BP Pulse Ox O2 Del Method 06/12/24 16:51 84 13 96 06/12/24 16:48 85 14 95 06/12/24 16:47 84 06/12/24 16:30 165/91 H 06/12/24 16:27 84 15 95 06/12/24 16:01 167/101 H 06/12/24 15:57 83 15 96 06/12/24 15:51 86 18 99 06/12/24 15:42 86 17 98 06/12/24 15:39 85 15 96 06/12/24 15:30 155/95 H 06/12/24 15:00 135/83 06/12/24 14:57 83 13 95 06/12/24 14:42 83 19 96 06/12/24 14:36 82 13 96 06/12/24 14:21 83 16 06/12/24 14:15 84 06/12/24 13:47 Room Air 06/12/24 13:47 Room Air 06/12/24 13:45 86 22 94 06/12/24 13:30 148/83 H 06/12/24 13:30 86 16 96 06/12/24 13:03 90 19 96 06/12/24 13:00 139/92 06/12/24 13:00 139/92 06/12/24 12:54 84 15 97 06/12/24 12:45 81 21 100 06/12/24 12:45 81 06/12/24 12:00 37.1 C 85 18 185/135 H 96 Room Air Laboratory Results Short CBC 06/12/24 Range/Units 12:21 WBC 3.79 L (4.8-10.8) K/ul Hgb 13.6 L (14.0-18.0) g/dl Hct 36.5 L (42.0-52.0) % Plt Count 233 (130-400) K/uL BMP 06/12/24 06/12/24 06/12/24 12:21 14:30 16:39 Sodium Cancelled Cancelled 132 L Potassium Cancelled Cancelled 4.0 Chloride Cancelled Cancelled 94 L Carbon Dioxide Cancelled Cancelled 28 BUN Cancelled Cancelled 13 Creatinine Cancelled Cancelled 0.87 Glucose Cancelled Cancelled 103 H Calcium Cancelled Cancelled 8.7 Liver Function 06/12/24 06/12/24 06/12/24 Range/Units 12:21 14:30 16:39 Total Bilirubin Cancelled Cancelled 1.8 H AST Cancelled Cancelled 158 H ALT Cancelled Cancelled 66 H Alkaline Phosphatase Cancelled Cancelled 112 H Albumin Cancelled Cancelled 3.1 L Diagnostic Findings Chest X-Ray 06/12/24 12:03 XR chest 1V portable CLINICAL HISTORY: Chest pain, nonspecific COMPARISON STUDY: None FINDINGS: Heart size and pulmonary vasculature are normal. No effusion, consolidation, or pneumothorax. IMPRESSION: No acute findings. ACT 112: Negative or not required by law. Electronically signed by: Trey Coronado M.D. 06/12/2024 12:33 PM Abdomen/Pelvis CT 06/12/24 14:03 EXAM: CT Angiography Chest and CT Abdomen and Pelvis With Intravenous Contrast INDICATION: Pain TECHNIQUE: Axial computed tomographic angiography images of the chest and axial computed tomography images of the abdomen and pelvis with intravenous contrast. Sagittal and coronal reformatted images were created and reviewed. This CT exam was performed using one or more of the following dose reduction techniques: automated exposure control, adjustment of the mA and/or kV according to patient size, and/or use of iterative reconstruction technique. MIP reconstructed images were created and reviewed. CONTRAST: 118ml of Optiray 320 was administered intravenously. COMPARISON: No relevant prior studies available. FINDINGS: CHEST: Aorta: No acute change noted. No thoracic aortic aneurysm or dissection. Pulmonary arteries: No significant abnormality noted. No pulmonary embolism is identified. Great vessels of aortic arch: No acute change noted. No dissection. No arterial occlusion or significant stenosis. Lungs and pleural spaces: No abnormality noted. No mass. No consolidation. No significant effusion. No pneumothorax. Heart: No abnormality noted. No cardiomegaly. No significant pericardial effusion. Thyroid: There is a 2.0 x 1.7 cm right thyroid nodule. ABDOMEN: Liver: There is marked fatty change of the liver. There is an irregular lobulated enhancing mass in the left lobe measuring 6.2 cm transverse by 3.9 cm AP by 5.5 cm long. Gallbladder and bile ducts: No abnormality noted. No calcified stones. No ductal dilation. Pancreas: No abnormality noted. No ductal dilation. No mass. Spleen: No abnormality noted. No splenomegaly. Adrenals: There is a 1.4 x 1.2 cm left adrenal nodule with density measurements slightly greater than expected for an adenoma. The right appears normal. Kidneys and ureters: Simple left renal cyst/s. No simple cyst follow-up necessary. Right kidney appears normal. No renal stone, hydronephrosis or perinephric fluid. The right kidney appears normal. No solid mass. Stomach and bowel: Postoperative changes of the stomach noted. Staple lines are well defined without thickening or adjacent inflammation. No intestinal obstruction. PELVIS: Appendix: Well seen and appears normal. Bladder: There is mild thickening of the urinary bladder which is incompletely distended. Reproductive: No significant abnormality noted. CHEST, ABDOMEN and PELVIS: Intraperitoneal space: No abnormality noted. No significant fluid collection. No free air. Bones/joints: Degenerative changes noted throughout the spine. No acute osseous abnormality seen. Soft tissues: There are small bilateral fat containing inguinal hernias. Lymph nodes: No abnormality noted. No enlarged lymph nodes. IMPRESSION: 1. Left hepatic lobe mass concerning for neoplasm. 2. No pulmonary embolus5 or aortic dissection. 3. There is a 2.0 x 1.7 cm right thyroid nodule. Ultrasound recommended if not already known. 4. 1.4 cm greatest diameter left adrenal nodule probably an adenoma but somewhat more dense than typical. If there is no history of malignancy consider a follow-up low dose, non-contrast adrenal CT or chemical-shift adrenal MRI in 12 months. If there is a history of malignancy recommend a low dose, non-emergent, non-contrast adrenal CT or chemical-shift adrenal MRI follow-up study. 5. There is mild thickening of the urinary bladder which is incompletely distended. Correlate with urinalysis for cystitis. ACT 112: Negative or not required by law. Electronically signed by Ghislaine Jasmine 06-12-2024 4:36 PM Chest CTA 06/12/24 14:03 EXAM: CT Angiography Chest and CT Abdomen and Pelvis With Intravenous Contrast INDICATION: Pain TECHNIQUE: Axial computed tomographic angiography images of the chest and axial computed tomography images of the abdomen and pelvis with intravenous contrast. Sagittal and coronal reformatted images were created and reviewed. This CT exam was performed using one or more of the following dose reduction techniques: automated exposure control, adjustment of the mA and/or kV according to patient size, and/or use of iterative reconstruction technique. MIP reconstructed images were created and reviewed. CONTRAST: 118ml of Optiray 320 was administered intravenously. COMPARISON: No relevant prior studies available. FINDINGS: CHEST: Aorta: No acute change noted. No thoracic aortic aneurysm or dissection. Pulmonary arteries: No significant abnormality noted. No pulmonary embolism is identified. Great vessels of aortic arch: No acute change noted. No dissection. No arterial occlusion or significant stenosis. Lungs and pleural spaces: No abnormality noted. No mass. No consolidation. No significant effusion. No pneumothorax. Heart: No abnormality noted. No cardiomegaly. No significant pericardial effusion. Thyroid: There is a 2.0 x 1.7 cm right thyroid nodule. ABDOMEN: Liver: There is marked fatty change of the liver. There is an irregular lobulated enhancing mass in the left lobe measuring 6.2 cm transverse by 3.9 cm AP by 5.5 cm long. Gallbladder and bile ducts: No abnormality noted. No calcified stones. No ductal dilation. Pancreas: No abnormality noted. No ductal dilation. No mass. Spleen: No abnormality noted. No splenomegaly. Adrenals: There is a 1.4 x 1.2 cm left adrenal nodule with density measurements slightly greater than expected for an adenoma. The right appears normal. Kidneys and ureters: Simple left renal cyst/s. No simple cyst follow-up necessary. Right kidney appears normal. No renal stone, hydronephrosis or perinephric fluid. The right kidney appears normal. No solid mass. Stomach and bowel: Postoperative changes of the stomach noted. Staple lines are well defined without thickening or adjacent inflammation. No intestinal obstruction. PELVIS: Appendix: Well seen and appears normal. Bladder: There is mild thickening of the urinary bladder which is incompletely distended. No stones or gas. Reproductive: No significant abnormality noted. CHEST, ABDOMEN and PELVIS: Intraperitoneal space: No abnormality noted. No significant fluid collection. No free air. Bones/joints: Degenerative changes noted throughout the spine. No acute osseous abnormality seen. Soft tissues: There are small bilateral fat containing inguinal hernias. Lymph nodes: No abnormality noted. No enlarged lymph nodes. IMPRESSION: 1. Left hepatic lobe mass concerning for neoplasm. 2. No pulmonary embolus or aortic dissection. 3. There is a 2.0 x 1.7 cm right thyroid nodule. Ultrasound recommended if not already known. 4. 1.4 cm greatest diameter left adrenal nodule probably an adenoma but somewhat more dense than typical. If there is no history of malignancy consider a follow-up low dose, non-contrast adrenal CT or chemical-shift adrenal MRI in 12 months. If there is a history of malignancy recommend a low dose, non-emergent, non-contrast adrenal CT or chemical-shift adrenal MRI follow-up study. 5. There is mild thickening of the urinary bladder which is incompletely distended. Correlate with urinalysis for cystitis. ACT 112: Negative or not required by law. Electronically signed by Ghislaine Jasmine 06-12-2024 4:36 PM ECG Additional Comments: sinus rhythm, T wave inversion septal leads per my interpretation Supervising Physician Co-Signing Physician Notes 53-year-old male with PMH of paroxysmal A-fib, on Eliquis, HTN, obesity status post gastric bypass 03/2022, prior history of T2DM now has improved to prediabetes level since weight loss, PTSD presented to the ED with complaint of chest pain. Patient reports she has been having chest pain on and off, today he had chest pain while at rest in AM, 4/10 in intensity, aching nature, radiating to left jaw, somewhat relieved with morphine. Patient denies shortness of breath. Patient denies fever/nausea/vomiting/diarrhea/constipation/pain or burning with passing urine. Patient reports mild belly pain, mid upper belly, since last week, on and off, not present at bedside examination. Patient reports he drinks up to 12 packs of beers a day, denies tobacco use, denies recreational drug use. Patient reports she easily goes into withdrawal reaction but denies having withdrawal seizure in the past. Patient reports that he has gained 45 pounds in the last 9 months, he has been consuming more pizzas in the last 8 months, he has history of about 30 years of drinking alcohol products with small breaks in between. Patient reports feeling dehydrated. Patient reports he has moved into the area about 1 year ago and his first primary care visit was last week (per him) when his blood work was drawn. Admitting labs reviewed, WBC 3.79, hemoglobin 13.6, platelet 233K. Sodium 132, BUN and creatinine WNL, LFT [T. bili 1.8, AST 158, ALT 66, ALP 112], troponin 3.6, Lipase 149. CXR with no acute finding. CT abdomen pelvis and CTA chest: Left hepatic lobe mass concerning for neoplasm. No PE. Right thyroid nodule 2.0 x 1.7 cm. Left adrenal nodule 1.4 cm. OP Lab review: 06/05/24:TG > 4425, Na 132, lipase 534. AST 499, ALT 144, ALP 115, T bili 1.7 06/10/24: TG > 4425. lipase 121. AST 211, ALT 88, ALP 146, T bili 1.3. 07/02/22 ECHO : EF of 60-65%, Gr I diastolic dysfunction, Aortic root dilatation 4.1 cm. Active problems: Severe Hypertriglyceridemia: Triglyceride level as above, for now n.p.o. and IV fluids. Repeat TG level every 8 hours. Continue home fenofibrate. Consult GI. Per literature review, "Drug therapy for hypertriglyceridemia (aside from treatment of LDL-C) is deferred for most patients until the TG level is lowered to <=1000 mg/dL. Given the rapid rate of TG level lowering achievable with stringent dietary fat restriction, with close monitoring it may be possible to initiate drug therapy for hypertriglyceridemia within days." Chest pain rule out ACS: Troponin WNL, EKG with no acute ST-T changes. Prior echo as above. Trend troponin. Cardiology consult, echo. Likely pseudohyponatremia: Sodium level 132 in outpatient lab review and at admission. In the setting of hypertriglyceridemia. Continue to monitor BMP daily. Expect to improve w/ improvement in TG level. Transaminitis: Appears slowly getting better, see above. Get hepatitis panel, GI consult, admitting CTAP as above. Abnormal CTAP: Heme-onc consult to help guide with oncology workup. Hold Eliquis in case if we need biopsy. Elevated lipase: As above, admitting CTAP with no pancreatitis. Patient with no active abdominal pain at bedside, nontender on exam. Continue with IV fluid, patient at very high risks of pancreatitis given severe hypertriglyceridemia. Low threshold to get pancreatic protocol CT scan if patient with abdominal pain. GI consult. Leukopenia: Outpatient lab review reveals WBC of 7.4 on 06/05/2024, WBC 3.79 here. Patient with no signs of active infection. Continue to monitor. Cause unknown given acute drop within a week time. Alcohol abuse: Patient drinks too much alcohol, see above. KIA protocol, gabapentin taper, IV banana bag/thiamine/folic acid. Low threshold for transfer to ICU as patient at very high risks of severe alcohol withdrawal and complications. On exam: GENERAL: Alert and oriented x3. NAD, on RA. HEENT: No pallor, no icterus. Pupils equal, round and reactive to light. Oral mucosa moist. NECK: No JVD, no neck masses. HEART: S1 and S2 heard. Regular rate and rhythm. No murmur, no gallop. RESPIRATORY SYSTEM: Normal AP diameter. No accessory muscle use. No wheezing, no crackles. ABDOMEN: Soft, bowel sounds present, nontender, no distention. CENTRAL NERVOUS SYSTEM: No facial droop. Speech is clear. Obeys simple commands. Moves extremities. EXTREMITIES: No edema, no erythema seen. I have seen and examined the patient and have discussed the case with the provider above. I agree with the assessment and plan as stated. Time spent separately: 60 minutes.
[2024-06-12] MEDS: LORazepam 1 MG TAB SL STA (18:48)
[2024-06-12] MEDS: LACTATED RINGER'S 1,000 ML IV SCH (18:54)
[2024-06-12 19:26] LABS: Troponin I High Sensitivity 4.5 pg/ml (0-20)
[2024-06-12] MEDS: FOLIC ACID 1 MG in SYRINGE 9.8 ML IV STA (19:42)
[2024-06-12] MEDS: THIAMINE HCL 100 MG in SYRINGE 9 ML IV STA (19:43)
--- OUTSIDE RECORDS SUMMARY | 2024-06-12 20:32 | External Medical Summary ---
Author Name Unknown Address Unknown Organization [id number]:[facility] [place] [address] [facility] [address] Laboratory Report Ordering Provider Test Date Status JC NÚÑEZ 06/10/2024 10:35:16 Correction Observation Date Value Abnormality Reference (Units ) Status Triglyceride 06/10/2024 10:35:16 >4425 Above high normal <=174 (mg/dL) Final Triglyceride Reference Range s (mg/dL):
<150 Acceptable
150-174 Borderline high
175-499 High
>=500 Very high Cholesterol 06/10/2024 10:35:16 1046 Above high normal <200 (mg/dL) Final Total Cholesterol Reference Ranges (mg/dL):
<200 Desirable
200-239 Borderline high
>=240 High HDL 06/10/2024 10:35:16 <3 Below low normal >39 (mg/dL) Final HDL Cholesterol Reference Ra nges (mg/dL):
>=60 High (Desirable)
<50 Low (Undesirable) For Females
<40 Low (Undesirable) For Males NON-HDL CHOLESTEROL 06/10/2024 10:35:16 >1043 A zac high normal <=159 (mg/dL) Correction Non-HDL Cholesterol Referenc e Range (mg/dL):
<100 Target level for high risk ASCVD patient
<130 Optimal for general population
130-159 Near optimal for general population
160-189 Borderline High
190-219 High
>=220 Very High Performing Location [facility] - [address] [facility] [address]
--- OUTSIDE RECORDS SUMMARY | 2024-06-12 20:32 | External Medical Summary ---
Author Name Unknown Address Unknown Organization [id number]:[place]ORY [facility] [place] [address] [place] [address] Laboratory Report Ordering Provider Test Date Status JC NÚÑEZ 06/05/2024 15:22:47 Final Deficient: <20 ng/mL
Ins ufficient: 20-29 ng/mL
Recommended/Optimum:30-50 ng/mL

Vitamin D intoxication is rare. If suspicious of Vitamin D toxicity, evaluation of serum Calcium and PTH is recommended. Observation Date Value Abnormality Reference (Units ) Status 25-OH Vitamin D total 06/05/2024 15:22:47 35 >19 (ng/mL) Final Performing Location LABORATORY [facility] - [address] [place] [address]
--- OUTSIDE RECORDS SUMMARY | 2024-06-12 20:32 | External Medical Summary ---
Author Name Unknown Address Unknown Organization [id number]:LABORATORY [facility] - [address] [facility] [address] Laboratory Report Ordering Provider Test Date Status JC NÚÑEZ 06/05/2024 15:22:47 Final Observation Date Value Abnormality Reference (Units ) Status SYNC LEUKOCYTES IN BLOOD BY AUTOMATED COUNT 06/05/2024 15:22:47 7.48 4.00-10.80 (K/uL) Final Neutrophils/100 leukocytes in Blood by Manual count 06/05/2024 15:22:47 66.0 40.0-75.0 (%) Final Lymphocytes/100 leukocytes in Blood by Manual count 06/05/2024 15:22:47 28.0 18.0-42.0 (%) Final Monocytes/100 leukocytes in Blood by Manual count 06/05/2024 15:22:47 6.0 1.0-11.0 (%) Final Neutrophils [#/volume] in Blood by Manual count 06/05/2024 15:22:47 4.94 1.80-7.70 (K/uL) Final Lymphocytes [#/volume] in Blood by Manual count 06/05/2024 15:22:47 2.09 1.00-4.80 (K/uL) Final Monocytes [#/volume] in Blood by Manual count 06/05/2024 15:22:47 0.45 0.00-1.10 (K/uL) Final Performing Location [facility] - [address] [facility] [address]
--- OUTSIDE RECORDS SUMMARY | 2024-06-12 20:32 | External Medical Summary ---
Author Name Unknown Address Unknown Organization [id number]:[place] [facility] [place] [address] [facility] [address] Laboratory Report Ordering Provider Test Date Status JC ÚNÑEZ 06/05/2024 15:22:47 Final Observation Date Value Abnormality Reference (Units ) Status BUN 06/05/2024 15:22:47 11 6-20 (mg/d L) Final Lipemia removed by ultracent rifugation.\X09\ Creatinine 06/05/2024 15:22:47 1.0 0.6-1.2 ( mg/dL) Final Glomerular filtration rate/1 .73 sq M.predicted [Volume Rate/Area] in Serum, Plasma or Blood by Creatinine-based formula (CKD-EPI) 06/05/2024 15:22:47 89 >=60 (mL/min) Final eGFR is calculated based on the CKD-EPI 2020 equation. Sodium 06/05/2024 15:22:47 132 Below low normal 135 -146 (mmol/L) Final Lipemia removed by ultracent rifugation.\X09\ Potassium 06/05/2024 15:22:47 4.1 3.5-5.1 (m mol/L) Final Lipemia removed by ultracent rifugation.\X09\ Cl 06/05/2024 15:22:47 89 Below low normal 98- 107 (mmol/L) Final Lipemia removed by ultracent rifugation.\X09\ CO2 06/05/2024 15:22:47 24 22-32 (mmo l/L) Final Anion gap 06/05/2024 15:22:47 19 Above high normal 7- 15 (mmol/L) Final Glucose 06/05/2024 15:22:47 108 70-120 (mg /dL) Final Lipemia removed by ultracent rifugation.\X09\ Albumin 06/05/2024 15:22:47 3.7 Below low normal 3.8 -5.0 (g/dL) Final Lipemia removed by ultracent rifugation.\X09\ AST (Aspartate aminotransferase) 06/05/2024 15:22:47 499 Above high normal 10-50 (U/L) Final Lipemia removed by ultracent rifugation.\X09\
Result may be falsely elevated due to hemolysis. Alk Phos 06/05/2024 15:22:47 115 35-130 (U/ L) Final Bilirubin, Total 06/05/2024 15:22:47 1.7 Above high no rmal <=1.2 (mg/dL) Final Lipemia removed by ultracent rifugation.\X09\ Calcium 06/05/2024 15:22:47 9.2 8.4-10.2 ( mg/dL) Final Lipemia removed by ultracent rifugation.\X09\ Protein 06/05/2024 15:22:47 5.6 Below low normal 6.0 -8.3 (g/dL) Final ALT (Alanine aminotransferase) 06/05/2024 15:22:47 144 Above high normal 10-50 (U/L) Final Lipemia removed by ultracent rifugation.\X09\
Result may be falsely elevated due to hemolysis. Performing Location [place] [facility] [place] [facility] [address] [facility] [address] [place]. [facility] [address]
--- OUTSIDE RECORDS SUMMARY | 2024-06-12 20:32 | External Medical Summary ---
Author Name Unknown Address Unknown Organization [id number]:LABORATORY [facility] [place] - [address] [place] [address] Laboratory Report Ordering Provider Test Date Status NIYAGREENE 06/05/2024 15:22:47 Final Observation Date Value Abnormality Reference (Units ) Status Lipase 06/05/2024 15:22:47 534 Above high normal 13 -60 (U/L) Final Results may be falsely eleva garrick due to hemolysis. Performing Location LABORATORY [facility] [place] - [address] [place] [address]
--- OUTSIDE RECORDS SUMMARY | 2024-06-12 20:32 | External Medical Summary ---
Author Name Unknown Address Unknown Organization [id number]:LABORATORY [facility] [place] - [address] [facility] [address] Laboratory Report Ordering Provider Test Date Status JC NÚÑEZ 06/05/2024 15:22:47 Final Observation Date Value Abnormality Reference (Units ) Status Triglyceride 06/05/2024 15:22:47 >4425 Above high normal <=174 (mg/dL) Final Triglyceride Reference Range s (mg/dL):
<150 Acceptable
150-174 Borderline high
175-499 High
>=500 Very high Cholesterol 06/05/2024 15:22:47 1323 Above high normal <200 (mg/dL) Final Total Cholesterol Reference Ranges (mg/dL):
<200 Desirable
200-239 Borderline high
>=240 High HDL 06/05/2024 15:22:47 <3 Below low normal >39 (mg/dL) Final HDL Cholesterol Reference Ra nges (mg/dL):
>=60 High (Desirable)
<50 Low (Undesirable) For Females
<40 Low (Undesirable) For Males NON-HDL CHOLESTEROL 06/05/2024 15:22:47 >1320 Above high normal <=159 (mg/dL) Final Non-HDL Cholesterol Referenc e Range (mg/dL):
<100 Target level for high risk ASCVD patient
<130 Optimal for general population
130-159 Near optimal for general population
160-189 Borderline High
190-219 High
>=220 Very High Performing Location LABORATORY [facility] [place] - [address] [facility] [address]
--- OUTSIDE RECORDS SUMMARY | 2024-06-12 20:32 | External Medical Summary ---
Author Name Unknown Address Unknown Organization [id number]:[place] [facility] [place] [address] [facility] [address] Laboratory Report Ordering Provider Test Date Status JC NÚÑEZ 06/10/2024 10:35:16 Final Observation Date Value Abnormality Reference (Units ) Status Albumin 06/10/2024 10:35:16 3.2 Below low normal 3.8-5.0 (g/dL) Final AST (Aspartate aminotransferase) 06/10/2024 10:35:16 211 Above high normal 10-50 (U/L) Final Result may be falsely elevat ed due to hemolysis.

Lipemia removed by ultracentrifugation.\X09\ Alk Phos 06/10/2024 10:35:16 146 Above high normal 35 -130 (U/L) Final ALT (Alanine aminotransferase) 06/10/2024 10:35:16 88 Above high normal 10-50 (U/L) Final Lipemia removed by ultracent rifugation.\X09\ Bilirubin, Total 06/10/2024 10:35:16 1.3 Above high no rmal <=1.2 (mg/dL) Final Bilirubin, Direct 06/10/2024 10:35:16 1.1 Above high n ormal 0.0-0.3 (mg/dL) Final Result may be falsely decrea sed due to hemolysis. Protein 06/10/2024 10:35:16 5.9 Below low normal 6.0 -8.3 (g/dL) Final Performing Location [place] [facility] [place] [address] [facility] [address]
--- OUTSIDE RECORDS SUMMARY | 2024-06-12 20:32 | External Medical Summary ---
Author Name Unknown Address Unknown Organization K01:[place] [facility] [place] [address] [facility] [address] Laboratory Report Ordering Provider Test Date Status NIYATANMAY DE SOUZAON 06/05/2024 15:22:47 Final Observation Date Value Abnormality Reference (Units ) Status TSH 06/05/2024 15:22:47 4.56 Above high normal 0. 27-4.20 (uIU/mL) Final Performing Location [place] [facility] [place] [address] [facility] [address]
--- OUTSIDE RECORDS SUMMARY | 2024-06-12 20:32 | External Medical Summary ---
Author Name Unknown Address Unknown Organization K01:[place] [facility] [place] [address] [place] [address] Laboratory Report Ordering Provider Test Date Status JC NÚÑEZ 06/05/2024 15:22:47 Final Observation Date Value Abnormality Reference (Units ) Status Vitamin B12 06/05/2024 15:22:47 >2000 Above high normal 232-1245 (pg/mL) Final Performing Location [facility] - [address] [place] [address]
--- OUTSIDE RECORDS SUMMARY | 2024-06-12 20:32 | External Medical Summary ---
Author Name Unknown Address Unknown Organization K01:LABORATORY [facility] [place] [address] [facility] [place] [address] Laboratory Report Ordering Provider Test Date Status JC NÚÑEZ 06/05/2024 15:22:47 Final Observation Date Value Abnormality Reference (Units ) Status WBC, Total 06/05/2024 15:22:47 7.48 4.00-10.8 0 (K/uL) Final RBC 06/05/2024 15:22:47 3.84 4.50-5.25 (M/uL) Final Hemoglobin 06/05/2024 15:22:47 13.9 Below low normal 14 .0-16.8 (g/dL) Final Anemia reflex testing trigge rs on a HGB < 12.0 for Females and HGB < 13.0 for Males in accordance with the WHO Anemia Guidelines
Anemia reflex testing triggers on a HGB < 12.0 for Females and HGB < 13.0 for Males in accordance with the WHO Anemia Guidelines

Results corrected for lipemia. HCT 06/05/2024 15:22:47 37.7 Below low normal 40. 0-48.4 (%) Final MCV 06/05/2024 15:22:47 98.2 82.0-99.5 (fL) Final MCH 06/05/2024 15:22:47 36.2 27.0-34.0 (pg) Final MCHC 06/05/2024 15:22:47 36.9 32.0-36.0 (g/dL) Final RDW 06/05/2024 15:22:47 15.1 11.5-15.5 (%) Final Platelets 06/05/2024 15:22:47 164 140-400 (K /uL) Final MPV 06/05/2024 15:22:47 10.2 6.6-11.1 ( fL) Final Nucleated erythrocytes/100 leukocytes [Ratio] in Blood by Automated count 06/05/2024 15:22:47 0 <=0 (/100 WBCs) Final Performing Location [facility]ORY [facility] [place] - [facility] [address] [facility] [address]
--- OUTSIDE RECORDS SUMMARY | 2024-06-12 20:32 | External Medical Summary | Summary of Care ---
Author Name Unknown Organization [facility] Address [address] [place] [address] Phone [phone] Care Team Providers Care Veneer Drier Name Role Phone Radha Duke DO Primary Care Provider Reason for Visit * Reason Comments Outpatient Testing Encounter Details Date Type Department Care Team (Late st Contact Info) Description 06/10/2024 10:40 AM EST Laboratory Laboratory [address] [place] [phone] [address] [place] [address] High triglycerides; Elevated LFTs; LUQ abdominal pain Allergies No known active allergiesdocumented as of this encounter (statuses as of 06/10/2024) Medications buPROPion HCl ER (XL) 300 MG Oral Tablet Extended Release 24 Hour (Wellbutrin XL) Take 1 Tablet by mouth in the morning. 90 Tablet 3 5 Active dilTIAZem HCl ER 120 MG Oral Capsule Extended Release 24 Hour Take 1 Capsule by mouth in the morning. 90 Capsule 3 5 Active Eliquis 5 MG Oral Tablet Take 1 Tablet by mouth in the morning and 1 Tablet before bedtime. 180 Tablet 3 5 Active Nebivolol HCl 20 MG Oral Tablet (Bystolic) Take 1 Tablet by mouth in the morning. 90 Tablet 3 5 Active Omeprazole 20 MG Oral Capsule Delayed Release (PriLOSEC) Take 1 Capsule by mouth in the morning. 1 hour before the first meal of the day. 30 Capsule 5 Active Fenofibrate 145 MG Oral Tablet (Tricor) Take 1 Tablet by mouth in the morning. 30 Tablet 5 5 Active Levothyroxine Sodium 50 MCG Oral Tablet (Levoxyl) Take 1 Tablet by mouth in the morning. (at least 30 min prior to breakfast or other meds). 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 History of diabetes mellitus 06/05/2024 Nocturia 06/05/2024 Seasonal allergies 06/05/2024 Overview (06/05/2024): On allergy shots Peripheral polyneuropathy 06/05/2024 documented as of this encounter (statuses as of 06/10/2024) Immunizations Name Administration Dates Next Due Seasonal Influenza, Trivalent, (IIV3), PF, (Fluz one) 06/05/2024 documented as of this encounter Social History Tobacco Use Types Packs/Day Years Used Date Smoking Tobacco: Never Smokeless Tobacco: Former Snuff Alcohol Use Standard Drinks/Week Comments Yes 0 (1 standard drink = 0.6 oz pur e alcohol) 2-8 beers per week Sex and Gender Information Value Date Recorded Sex Assigned at Not on file Legal Sex Male 9:35 AM EST Gender Identity Not on file Sexual Orientation Not on file documented as of this encounter Plan of Treatment Upcoming Encounters Date Type Department Care Team (Late st Contact Info) Description 06/11/2024 1:00 PM EST Office Visit Cardiology, [facility] [address] [place] [address] [place], [address] [place] [address] 06/19/2024 4:00 PM EST Nurse Only Ancillary [address] [place] [address] Jame Nurse [address] [place] [address] 01/03/2025 2:30 PM EDT Office Visit Family Medicine [address] [place] [phone] Radha Duke, [address] [place] [address] Pending Results Name Type Priority Associated Diagnoses Date /Time LIPID PANEL WITH DIRECT LDL IF TG IS HIGH Lab Routine High triglycerides 06/10/2024 10:35 AM EST LIPASE Lab Routine High triglycerides Elevated LFTs LUQ abdominal pain 06/10/2024 10:35 AM EST HEPATIC FUNCTION PANEL Lab Routine High triglycerides Elevated LFTs LUQ abdominal pain 06/10/2024 10:35 AM EST Health Maintenance Due Date Last Done Comments Depression Screening 1981 HIV Screening 1984 Hepatitis C Screening 08/11/1987 DTap/Tdap Vaccines (1 - Tdap) 1988 Hepatitis B Vaccine (1 of 3 - 19+ 3-dose series) 1988 Cologuard 2014 Fecal Occult Blood Test 2014 Sigmoidoscopy 2014 COVID-19 Vaccine ( season) 2023 08/05/2020, 07/15/2020, 06/07/2020 GFR 06/05/2025 06/05/2024, 07/0 12/2021, 05/31/2021, Additional history exists TSH 06/05/2025 06/05/2024 Albumin/Creatinine Ratio 06/05/2027 06/05/2024 Diabetes Screening 06/05/2027 06/05/2024, 0 06/05/2024, 12/04/2021, Additional history exists Colonoscopy 07/24/2028 07/24/2018 Colorectal Cancer Screening 07/24/2028 Lipid Panel 06/05/2029 06/05/2024 Zoster Vaccines Completed 11/17/2020, 08/25/2020 Pneumococcal Vaccine: 50+ Years Completed 11/29/2021, 03/17/2016 Influenza Vaccine (FLU shot) Completed , 03/01/2021, 02/16/2020, Additional history exists HPV (Gardasil) Vaccine Aged Out No lo nger eligible based on patient's age to complete this topic MENINGOCOCCAL (MENACTRA/MENVEO) Aged Out No longer eligible based on patient's age to complete this topic Meningitis B Vaccine (Bexsero/Trumemba) Aged Out No longer eligible based on patient's age to complete this topic documented as of this encounter Medical Devices Not on filedocumented as of this encounter Visit Diagnoses Diagnosis High triglycerides Pure hyperglyceridemia Elevated LFTs Other abnormal blood chemistry LUQ abdominal pain Abdominal pain, left upper quadrant documented in this encounter Care Teams Veneer Drier Relationship Specialty Start Date End Date Radha Duke DO [address] [place] [address] [place] [address] PCP - General Internal Medicine 06/05/24 documented as of this encounter
--- OUTSIDE RECORDS SUMMARY | 2024-06-12 20:32 | External Medical Summary ---
Author Name Unknown Address Unknown Organization K01:[place] [facility] [place] [address] [facility] [address] Laboratory Report Ordering Provider Test Date Status JC NÚÑEZ 06/05/2024 15:22:47 Final Normal: <30 mg/g creatinine< br/>High: 30-300 mg/g creatinine
Very High: >300 mg/g creatinine
Nephrotic: >2200 mg/g creatinine Observation Date Value Abnormality Reference (Units ) Status Albumin, Urine 06/05/2024 15:22:47 7.00 (mg/dL) Final Creatinine, Urine 06/05/2024 15:22:47 168 (mg/dL) Final Albumin/Creatinine [Mass Ratio] in Urine 06/05/2024 15:22:47 42 Above high normal <30 (mg/g Creat) Final Performing Location [place] [facility] [place] [address] [facility] [address]
--- OUTSIDE RECORDS SUMMARY | 2024-06-12 20:32 | External Medical Summary ---
Author Name Unknown Address Unknown Organization K01:LABORATORY [facility] [place] - [address] [place] [address] Laboratory Report Ordering Provider Test Date Status NIYATANMAY DE SOUZAON 06/05/2024 15:22:47 Final Observation Date Value Abnormality Reference (Units ) Status T4, Free 06/05/2024 15:22:47 0.7 Below low normal 0.9 -1.7 (ng/dL) Final Performing Location [facility] - [address] [facility] [address]
--- OUTSIDE RECORDS SUMMARY | 2024-06-12 20:32 | External Medical Summary | Summary of Care ---
Author Name Unknown Organization [facility] Address [address] [place] [address] Phone [phone] Care Team Providers Care Shampoo Person Name Role Phone Radha Duke DO Primary Care Provider Reason for Visit * Reason Comments Outpatient Testing Encounter Details Date Type Department Care Team (Late st Contact Info) Description 06/05/2024 3:00 PM EST Laboratory Laboratory [address] [place] [phone] [place] [address] Hyperlipidemia with target LDL less than 100; HTN, goal below 130/80; History of diabetes mellitus; S/P gastric bypass; Nocturia; Paroxysmal atrial fibrillation (HCC); LUQ abdominal pain Allergies No known active allergiesdocumented as of this encounter (statuses as of 06/05/2024) Medications buPROPion HCl ER (XL) 300 MG Oral Tablet Extended Release 24 Hour (Wellbutrin XL) Take 1 Tablet by mouth in the morning. 90 Tablet 3 06/05/2024 Active dilTIAZem HCl ER 120 MG Oral Capsule Extended Release 24 Hour Take 1 Capsule by mouth in the morning. 90 Capsule 3 06/05/2024 Active Eliquis 5 MG Oral Tablet Take 1 Tablet by mouth in the morning and 1 Tablet before bedtime. 180 Tablet 3 06/05/2024 Active Nebivolol HCl 20 MG Oral Tablet (Bystolic) Take 1 Tablet by mouth in the morning. 90 Tablet 3 06/05/2024 Active Omeprazole 20 MG Oral Capsule Delayed Release (PriLOSEC) Take 1 Capsule by mouth in the morning. 1 hour before the first meal of the day. 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 History of diabetes mellitus 06/05/2024 Nocturia 06/05/2024 Seasonal allergies 06/05/2024 Overview (06/05/2024): On allergy shots Peripheral polyneuropathy 06/05/2024 documented as of this encounter (statuses as of 06/05/2024) Immunizations Name Administration Dates Next Due Seasonal [...] 06/11/2024 1:00 PM EST Office Visit Cardiology, [facility] [address] [place] [address] [place], [address] [place] [address] 06/19/2024 4:00 PM EST Nurse Only Ancillary [facility] [address] [place] [address] [place], Nurse [address] [place] [address] 01/03/2025 2:30 PM EDT Office Visit Family Medicine [address] [place] [phone] Radha Duke[address] [place] [address] Pending Results Name Type Priority Associated Diagnoses Date /Time LIPID PANEL WITH DIRECT LDL IF TG IS HIGH Lab Routine Hyperlipidemia with target LDL less than 100 06/05/2024 3:22 PM EST COMPREHENSIVE METABOLIC PANEL Lab Routine HTN, goal below 130/80 Hyperlipidemia with target LDL less than 100 06/05/2024 3:22 PM EST HEMOGLOBIN A1C Lab Routine History of diabetes mellitus 06/05/2024 3:22 PM EST ALBUMIN / CREATININE RATIO, URINE Lab Routine HTN, goal below 130/80 06/05/2024 3:22 PM EST 25-HYDROXY VITAMIN D Lab Routine S/P gastric bypass 06/05/2024 3:22 PM EST VITAMIN B12 Lab Routine S/P gastric bypass 06/05/2024 3:22 PM EST CBC WITH WBC DIFFERENTIAL AND ANEMIA REFLEX WORKUP Lab Routine S/P gastric bypass 06/05/2024 3:22 PM EST PSA Lab Routine Nocturia 06/05/2024 3:22 PM EST TSH WITH FREE T4 IF INDICATED Lab Routine Paroxysmal atrial fibrillation (HCC) 06/05/2024 3:22 PM EST LIPASE Lab Routine LUQ abdominal pain 06/05/2024 3:22 PM EST ANEMIA CBC Lab Routine S/P gastric bypass 06/05/2024 3:22 PM EST DIFFERENTIAL, AUTOMATED Lab Routine S/P gastric bypass 06/05/2024 3:22 PM EST ANEMIA REFLEX CHEMISTRY HOLD Lab Routine S/P gastric bypass 06/05/2024 3:22 PM EST Health Maintenance Due Date Last Done Comments Lipid Panel 1969 Depression Screening 1981 HIV Screening 1984 Albumin/Creatinine Ratio 08/11/1987 Hepatitis C Screening 08/11/1987 DTap/Tdap Vaccines (1 - Tdap) 1988 Hepatitis B Vaccine (1 of 3 - 19+ 3-dose series) 1988 Cologuard 2014 Fecal Occult Blood Test 2014 Sigmoidoscopy 2014 GFR 10/23/2022 10/23/2021, 05/18, 05/28/2021, Additional history exists COVID-19 Vaccine ( season) 2023 08/05/2020, 07/15/2020, 06/07/2020 Diabetes Screening 12/04/2024 12/04/2021, 0 10/23/2021, 06/18/2021, Additional history exists Colonoscopy 07/24/2028 07/24/2018 Colorectal Cancer Screening 07/24/2028 Zoster Vaccines Completed 11/17/2020, 08/25/2020 Pneumococcal Vaccine: [...] as of this encounter Visit Diagnoses Diagnosis Hyperlipidemia with target LDL less than 100 Other and unspecified hyperlipidemia HTN, goal below 130/80 Unspecified essential hypertension History of diabetes mellitus Personal history of other endocrine, metabolic, and immunity disorders S/P gastric bypass Bariatric surgery status Nocturia Paroxysmal atrial fibrillation (HCC) Atrial fibrillation LUQ abdominal pain Abdominal pain, left upper quadrant documented in this encounter Care Teams Shampoo Person Relationship Specialty Start Date End Date Radha Duke DO [address] [place] [address] [place] [address] PCP - General Internal Medicine 06/05/24 documented as of this encounter
--- OUTSIDE RECORDS SUMMARY | 2024-06-12 20:32 | External Medical Summary | Summary of Care ---
Author Name Unknown Organization [facility] Address [address] [place] [address] Phone [phone] Care Team Providers Care Technical Sourcing Recruiter Name Role Phone Radha Duke DO Primary Care Provider + [phone] Reason for Referral * Evaluate & Treat - Unlimited Visits (Within 10 days (routine)) - Authorized Specialty Diagnoses / Procedures Referred By Mami vega Referred To Contact Cardiovascular Medicine / Cardiology Diagnoses Paroxysmal atrial fibrillation (HCC) Radha Duke DO [address] [place] [address] [place] [address] Phone: tel: fax: Referral ID Status Reason Start Date Expiration Date Visits Requested Visits Authorized [id number] Authorized Specialty Services Required 06/05/2024 999 999 Question Answer Referral Priority Within 10 days (routine) Where should this appointment be scheduled? [facility] For which of the following conditions are you referring? Atrial Fibrillation (A. Fib) Reason for Visit * Reason Comments NEW PATIENT Establishing with Dr Satnam Duke, former pt of Dr. Cope ([place], [place]). Encounter Details Date Type Department Care Team (Latest Contact Info) Description 06/05/2024 2:30 PM EST Office Visit Family Medicine [address] [place] [phone] Radha Duke DO [address] [place] [address] [place] [phone] Paroxysmal atrial fibrillation (HCC)*; Peripheral polyneuropathy; PTSD (post-traumatic stress disorder); HTN, goal below 130/80; S/P gastric bypass; Nocturia; Seasonal allergies; alf current use of anticoagulant therapy; History of diabetes mellitus; Hyperlipidemia with target LDL less than 100; LUQ abdominal pain; Moderate episode of recurrent major depressive disorder (HCC) Allergies No known active allergiesdocumented as of this encounter (statuses as of 06/05/2024) Medications buPROPion HCl ER (XL) 300 MG Oral Tablet Extended Release 24 Hour (Wellbutrin XL) Take 1 Tablet by mouth in the morning. 90 Tablet 3 06/05/19 25 Active dilTIAZem HCl ER 120 MG Oral Capsule Extended Release 24 Hour Take 1 Capsule by mouth in the morning. 90 Capsule 3 06/05/19 25 Active Eliquis 5 MG Oral Tablet Take 1 Tablet by mouth in the morning and 1 Tablet before bedtime. 180 Tablet 3 06/05/19 25 Active Nebivolol HCl 20 MG Oral Tablet (Bystolic) Take 1 Tablet by mouth in the morning. 90 Tablet 3 06/05/19 25 Active Omeprazole 20 MG Oral Capsule Delayed Release (PriLOSEC) Take 1 Capsule by mouth in the morning. 1 hour before the first meal of the day. 30 Capsule 06/05/19 25 Active Nebivolol HCl 20 MG Oral Tablet (Bystolic) Take 1 Tablet by mouth in the morning. 04/16/20 24 025 Discontinued(Re fill) buPROPion HCl ER (XL) 150 MG Oral Tablet Extended Release 24 Hour (Wellbutrin XL) Take 1 Tablet by mouth in the morning. 025 Discontinued dilTIAZem HCl ER 120 MG Oral Capsule Extended Release 24 Hour Take 1 Capsule by mouth in the morning. 06/04/19 25 025 Discontinued(Re fill) Eliquis 5 MG Oral Tablet Take 1 Tablet by mouth in the morning and 1 Tablet before bedtime. 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 0 06/05/2024 [...] Smoking Tobacco: Never Smokeless Tobacco: Former Snuff Tobacco Cessation:Counseling Given: Not Answered Alcohol Use Standard Drinks/Week Comments Yes 0 (1 standard drink = 0.6 oz pur e alcohol) 2-8 beers per week Sex and Gender Information Value Date Recorded Sex Assigned at Not on file Legal Sex Male 9:35 AM EST Gender Identity Not on file Sexual Orientation Not on file documented as of this encounter Last Filed Vital Signs Vital Sign Reading Time Taken Comments Blood Pressure 158/94 06/05/2024 3:17 PM EST Pulse 96 06/05/2024 2:36 PM EST Temperature 36.6 C (97.8 F) 06/05/2024 2:36 PM ES T Respiratory Rate - - Oxygen Saturation 97% 06/05/2024 2:36 PM EST Inhaled Oxygen Concentration - - Weight 117 kg (258 lb) 06/05/2024 2:36 PM EST Height - - Body Mass Index - - documented in this encounter Progress Notes * Radha Duke, DO - 06/05/2024 2:44 PM EST Subjective Cosme Redd is a 53 year old male. Chief Complaint Patient presents with NEW PATIENT Establishing with Dr. Duke, former pt of Dr. Cope ([place], [place]). HPI: Cosme Redd presents today to establish care. He is s/p RYGB in 03/2022. Lost 125#. Lowest weight was around 205#. He takes his vitamins regularly. BP is high here today. He did take his blood pressure medicine this morning. He is on wellbutrin for his anxiety. Overall works okay. He has paroxysmal A-fib and is on Eliquis, as well as diltiazem. He has been on nebivolol for quitesome time - even prior to having the A-fib. Allergies, immunizations, medications, past family history, past surgical history, and social history reviewed and updated as needed. PMH: Patient Active Problem List Diagnosis PTSD (post-traumatic stress disorder) Paroxysmal atrial fibrillation (HCC) alf current use of anticoagulant therapy HTN, goal below 130/80 S/P gastric bypass History of diabetes mellitus Nocturia Seasonal allergies Peripheral polyneuropathy Current Outpatient Medications Medication Sig Dispense Refill buPROPion HCl ER (XL) 300 MG Oral Tablet Extended Release 24 Hour (Wellbutrin XL) Take 1 Tablet by mouth in the morning. 90 Tablet 3 dilTIAZem HCl ER 120 MG Oral Capsule Extended Release 24 Hour Take 1 Capsule by mouth in the morning. 90 Capsule 3 Eliquis 5 MG Oral Tablet Take 1 Tablet by mouth in the morning and 1 Tablet before bedtime. 180 Tablet 3 Nebivolol HCl 20 MG Oral Tablet (Bystolic) Take 1 Tablet by mouth in the morning. 90 Tablet 3 Omeprazole 20 MG Oral Capsule Delayed Release (PriLOSEC) Take 1 Capsule by mouth in the morning. 1 hour before the first meal of the day. 30 Capsule 0 No current facility-administered medications for this visit. Past Medical History: Diagnosis Date HTN, goal below 130/80 06/05/2024 alf current use of anticoagulant therapy 06/05/2024 Paroxysmal atrial fibrillation (HCC) 06/05/2024 PTSD (post-traumatic stress disorder) 06/05/2024 S/P gastric bypass 06/05/2024 RYGB 03/2022. Past Surgical History: Procedure Laterality Date GASTRIC BYPASS FOR OBESITY 2021 NM OPEN TREATMENT NASAL FRACTURE UNCOMPLICATED N/A REPAIR BICEPS TENDON RUPTURE Review of patient's allergies indicates: No Known Allergies Family History Problem Relation Name Age of Onset Arthritis Mother Cancer Mother "white blood cell" Diabetes Mother Heart Disorder Father Family Status Relation Status Mo Alive Fa Social History Socioeconomic History Marital status: Spouse name: Not on file Number of children: 2 Years of education: Not on file Highest education level: Not on file Occupational History Not on file Tobacco Use Smoking status: Never Smokeless tobacco: Former Types: Snuff Vaping Use Vaping status: Never Used Substance and Sexual Activity Alcohol use: Yes Comment: 2-8 beers per week Drug use: Never Sexual activity: Not on file Other Topics Concern Not on file Social History Narrative Not on file Social Needs Financial Resource Strain: Not on file Food Insecurity: Not on file Transportation Needs: Not on file Social Connections: Unknown (08/29/2022) Received from [facility] [employer] Social Network: Not on file Housing Stability: Not on file Review of Systems Constitutional: Positive for fatigue. Negative for chills and fever. Respiratory: Negative for cough and shortness of breath. Cardiovascular: Negative for chest pain and leg swelling. (+) occ palpitations Gastrointestinal: Negative for blood in stool, constipation, diarrhea, nausea and vomiting. (+) LUQ abd pain - just started this morning Genitourinary: Negative for dysuria and hematuria. Musculoskeletal: Negative for myalgias. (+) right shoulder pain Skin: Negative for rash. Neurological: Negative for dizziness, light-headedness and headaches. Psychiatric/Behavioral: Positive for dysphoric mood. The patient is nervous/anxious. (+) occ sleep problems All other systems reviewed and are negative. Objective BP 168/96 | Pulse 96 | Temp 97.8 F (36.6 C) | Wt 258 lb (117 kg) | SpO2 97% Physical Exam Vitals and nursing note reviewed. Constitutional: Appearance: Normal appearance. Eyes: Extraocular Movements: Extraocular movements intact. Pupils: Pupils are equal, round, and reactive to light. Cardiovascular: Rate and Rhythm: Normal rate and regular rhythm. Heart sounds: Normal heart sounds. Pulmonary: Effort: Pulmonary effort is normal. Breath sounds: Normal breath sounds. Abdominal: General: There is no distension. Palpations: Abdomen is soft. Tenderness: There is no abdominal tenderness. Musculoskeletal: Cervical back: Neck supple. Right lower leg: No edema. Left lower leg: No edema. Lymphadenopathy: Cervical: No cervical adenopathy. Skin: General: Skin is warm and dry. Findings: No rash. Neurological: General: No focal deficit present. Mental Status: He is alert and oriented to person, place, and time. Psychiatric: Mood and Affect: Mood normal. Behavior: Behavior normal. Thought Content: Thought content normal. Judgment: Judgment normal. ASSESSMENT/PLAN: Paroxysmal atrial fibrillation (HCC) (Primary) - continue diltiazem and eliquis. Appears to be in NSR this morning. - CARDIOLOGY REFERRAL OP - TSH WITH FREE T4 IF INDICATED; Future; Expected date: 06/05/2024 Peripheral polyneuropathy - seems worse lately, ? If related to his blood sugars since he has gained some weight back. He does not want to take gabapentin. PTSD (post-traumatic stress disorder) - mood is not the best. Increase Wellbutrin to 300 mg. HTN, goal below 130/80 - high here today. Will bring him back for a BP recheck in 2 weeks and adjust meds as needed at that time. - COMPREHENSIVE METABOLIC PANEL; Future; Expected date: 06/05/2024 - ALBUMIN / CREATININE RATIO, URINE; Future; Expected date: 06/05/2024 S/P gastric bypass - he is taking his vitamins regularly. - 25-HYDROXY VITAMIN D; Future; Expected date: 06/05/2024 - VITAMIN B12; Future; Expected date: 06/05/2024 - CBC WITH WBC DIFFERENTIAL AND ANEMIA REFLEX WORKUP; Future; Expected date: 06/05/2024 Nocturia - PSA; Future; Expected date: 06/05/2024 Seasonal allergies - gets allergy shots in [employer]. alf current use of anticoagulant therapy History of diabetes mellitus - HEMOGLOBIN A1C; Future; Expected date: 06/05/2024 Hyperlipidemia with target LDL less than 100 - not on medication at present. - LIPID PANEL WITH DIRECT LDL IF TG IS HIGH; Future; Expected date: 06/05/2024 - COMPREHENSIVE METABOLIC PANEL; Future; Expected date: 06/05/2024 LUQ abdominal pain - ?marginal ulcer. Start PPI. Rule out pancreatitis with lipase. - LIPASE; Future; Expected date: 06/05/2024 Moderate episode of recurrent major depressive disorder (HCC) - increase wellbutrin to 300 mg daily. Other orders - buPROPion HCl ER (XL) 300 MG Oral Tablet Extended Release 24 Hour (Wellbutrin XL); Take 1 Tablet by mouth in the morning. - dilTIAZem HCl ER 120 MG Oral Capsule Extended Release 24 Hour; Take 1 Capsule by mouth in the morning. - Eliquis 5 MG Oral Tablet; Take 1 Tablet by mouth in the morning and 1 Tablet before bedtime. - Nebivolol HCl 20 MG Oral Tablet (Bystolic); Take 1 Tablet by mouth in the morning. - Omeprazole 20 MG Oral Capsule Delayed Release (PriLOSEC); Take 1 Capsule by mouth in the morning.1 hour before the first meal of the day. - INFLUENZA VAC, TRIVALENT, (IIV3), PF, 0.5 ML (FLUZONE) Follow-up: Return in about 6 months (around 12/03/2024). 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 Labs today. Nurse visit in a few weeks for BP recheck. Radha Duke DO I spent a total of 40-54 minutes (exact time 43 mins) on the date of service in preparation, delivery, and documentation of the care provided to Cosme Redd excluding any time spent in the performance of separately billed services or time spent by another provider/QHP. documented in this encounter Plan of Treatment Upcoming Encounters Date Type Department Care Team (Late st Contact Info) Description 06/11/2024 1:00 PM EST Office Visit Cardiology, [facility] [address] [facility] [address] [place] [address] Willie Delatorre DO [address] [facility] [place] [phone] 06/19/2024 4:00 PM EST Nurse Only Ancillary [address] [place] [address] Jame Nurse [address] [place] [address] 01/03/2025 2:30 PM EDT Office Visit Family Medicine [address] [place] [phone] Radha Duke DO [address] [place] [address] [place] [address] Pending Results Name Type Priority Associated Diagnoses [...] LUQ abdominal pain 06/05/2024 3:22 PM EST Scheduled Orders Name Type Priority Associated Diagnoses Orde r Schedule LIPID PANEL WITH DIRECT LDL IF TG IS HIGH Lab Routine Hyperlipidemia with target LDL less than 100 Expected: 06/05/2024, Expires: 06/05/2025 COMPREHENSIVE METABOLIC PANEL Lab Routine HTN, goal below 130/80 Hyperlipidemia with target LDL less than 100 Expected: 06/05/2024 (Approximate), Expires: 06/05/2025 HEMOGLOBIN A1C Lab Routine History of diabetes mellitus Expected: 06/05/2024 (Approximate), Expires: 06/05/2025 ALBUMIN / CREATININE RATIO, URINE Lab Routine HTN, goal below 130/80 Expected: 06/05/2024 (Approximate), Expires: 06/05/2025 25-HYDROXY VITAMIN D Lab Routine S/P gastric bypass Expected: 06/05/2024 (Approximate), Expires: 06/05/2025 VITAMIN B12 Lab Routine S/P gastric bypass Expected: 06/05/2024 (Approximate), Expires: 06/05/2025 CBC WITH WBC DIFFERENTIAL AND ANEMIA REFLEX WORKUP Lab Routine S/P gastric bypass Expected: 06/05/2024 (Approximate), Expires: 06/05/2025 PSA Lab Routine Nocturia Expected: 06/05/2024 (Approximate), Expires: 06/05/2025 TSH WITH FREE T4 IF INDICATED Lab Routine Paroxysmal atrial fibrillation (HCC) Expected: 06/05/2024, Expires: 06/05/2025 LIPASE Lab Routine LUQ abdominal pain Expected: 06/05/2024 (Approximate), Expires: 06/05/2025 Scheduled Referrals Name Type Priority Associated Diagnoses Orde r Schedule CARDIOLOGY REFERRAL OP Referral Within 10 days (routine) Paroxysmal atrial fibrillation (HCC) Ordered: 06/05/2024 Health Maintenance Due Date Last Done Comments [...] as of this encounter Visit Diagnoses Diagnosis Paroxysmal atrial fibrillation (HCC)- Primary Atrial fibrillation Peripheral polyneuropathy Unspecified hereditary and idiopathic peripheral neuropathy PTSD (post-traumatic stress disorder) Posttraumatic stress disorder HTN, goal below 130/80 Unspecified essential hypertension S/P gastric bypass Bariatric surgery status Nocturia Seasonal allergies Allergic rhinitis, cause unspecified alf current use of anticoagulant therapy History of diabetes mellitus Personal history of other endocrine, metabolic, and immunity disorders Hyperlipidemia with target LDL less than 100 Other and unspecified hyperlipidemia LUQ abdominal pain Abdominal pain, left upper quadrant Moderate episode of recurrent major depressive disorder (HCC) documented in this encounter Care Teams Technical Sourcing Recruiter Relationship Specialty Start Date End Date Radha Duke DO [address] [place] [address] [place] [id number] PCP - General Internal Medicine 06/05/24 documented as of this encounter
--- OUTSIDE RECORDS SUMMARY | 2024-06-12 20:32 | External Medical Summary ---
Author Name Unknown Address Unknown Organization [id number]:LABORATORY [facility] [place] - [address] [place] [address] Laboratory Report Ordering Provider Test Date Status JC NÚÑEZ 06/05/2024 15:22:47 Final Observation Date Value Abnormality Reference (Units ) Status HbA1C 06/05/2024 15:22:47 5.9 Above high normal 4. 0-5.6 (%) Final The use of HbA1c to monitor glycemic status is based on normal hemoglobin and HbA composition. This test should not be used in patients with abnormal hemoglobin that affects the half life of the red blood cell or the in vivo glycation rates. Glucose, estimated average 06/05/2024 15:22:47 123 <126 (mg/dL) Final Performing Location [facility] [place] [facility] [address] [facility] [address]
--- OUTSIDE RECORDS SUMMARY | 2024-06-12 20:32 | External Medical Summary ---
Author Name Unknown Address Unknown Organization [id number]:[facility] [place] [address] [place] [address] Laboratory Report Ordering Provider Test Date Status JC NÚÑEZ 06/05/2024 15:22:47 Final Observation Date Value Abnormality Reference (Units ) Status PSA 06/05/2024 15:22:47 0.63 <3.10 (ng/ mL) Final Performing Location [facility] [place] [address] [place] [address]
--- OUTSIDE RECORDS SUMMARY | 2024-06-12 20:32 | External Medical Summary ---
Author Name Unknown Address Unknown Organization [id number][place] [place] [address] [place] [address] Laboratory Report Ordering Provider Test Date Status JC NÚÑEZ 06/10/2024 10:35:16 Final Observation Date Value Abnormality Reference (Units ) Status Lipase 06/10/2024 10:35:16 121 Above high normal 13 -60 (U/L) Final Performing Location [facility] [place] [address] [place] [address]
--- OUTSIDE RECORDS SUMMARY | 2024-06-12 20:32 | External Medical Summary ---
Author Name Unknown Address Unknown Organization [id number]:[facility] [place] [address] [facility] [address] Laboratory Report Ordering Provider Test Date Status JC NÚÑEZ 06/05/2024 15:22:47 Final Observation Date Value Abnormality Reference (Units ) Status LDL, (direct) 06/05/2024 15:22:47 55 <=129 (mg/dL) Final Specimen lipemic, may interf ere with results.
LDL Cholesterol Reference Ranges (mg/dL):
<70 Target level for high risk ASCVD patient
<100 Optimal for general population
100-129 Near optimal for general population
130-159 Borderline high
160-189 High
>=190 Very high Performing Location LABORATORY [facility] - [address] [facility] [address]
--- OUTSIDE RECORDS SUMMARY | 2024-06-12 20:32 | External Medical Summary ---
Author Name Unknown Address Unknown Organization [id number]:LABORATORY [facility] [place] - [address] [place] [address] Laboratory Report Ordering Provider Test Date Status NIYAGREENE 06/10/2024 10:35:16 Final Observation Date Value Abnormality Reference (Units ) Status LDL, (direct) 06/10/2024 10:35:16 26 <=129 (mg/dL) Final LDL Cholesterol Reference Ra nges (mg/dL):
<70 Target level for high risk ASCVD patient
<100 Optimal for general population
100-129 Near optimal for general population
130-159 Borderline high
160-189 High
>=190 Very high Performing Location LABORATORY [facility] - [address] [place] [address]
[2024-06-12] MEDS ORDERED: POLYETHYLENE (MIRALAX) 17 GM PACK PO PRN (21:50)
[2024-06-12] MEDS ORDERED: Ativan IV Alcohol Withdrawal--Active Protocol IV PRN (21:50)
[2024-06-12] MEDS ORDERED: ONDANSETRON INJ 2 MG/ML 2 ML VIAL IV PRN (21:50)
[2024-06-12] MEDS ORDERED: GABAPENTIN 1200MG ALCOHOL WITHDRAWAL LOAD PO STA (21:50)
[2024-06-12] MEDS: GABAPENTIN 600 MG TAB PO ONE (22:20)
[2024-06-13] MEDS: LORazepam 2 MG/1 ML VIAL IV PRN (01:00)
[2024-06-13] MEDS: GABAPENTIN 600 MG TAB PO SCH ×2 (05:00→17:09)
[2024-06-13] MEDS: LEVOTHYROXINE SODIUM 50 MCG TABLET PO SCH (05:45)
--- OUTSIDE RECORDS SUMMARY | 2024-06-13 06:12 | External Medical Summary | Summary of Care ---
Author Name Unknown Organization [facility] Address [address] [place] [address] Phone [phone] Care Team Providers Care Laboratory Technical Specialist Name Role Phone Radha Duke Primary Care Provider Reason for Referral * Precert (Within 10 days (routine)) - Authorized Specialty Diagnoses / Procedures Referred By Contac t Referred To Contact Radiology Diagnoses Chronic pancreatitis, unspecified pancreatitis type (HCC) High triglycerides Procedures CT PANCREAS W WO IV AND W ORAL CONTRAST Willie Delatorre DO [address] [place] [address] Phone: tel: fax: Referral ID Status Reason Start Date Expiration Date V isits Requested Visits Authorized [id number] Authorized 06/11/2024 2024 999 999 * Precert (Diagnostic Medical) (Within 10 days (routine)) - Authorized Specialty Diagnoses / Procedures Referred By Contac t Referred To Contact Cardiac Studies Diagnoses Paroxysmal atrial fibrillation (HCC) Aortic root enlargement (HCC) Procedures ECHO, COMPLETE (2D), TRANS-THORACIC Willie Delatorre DO [address] [place] [address] Phone: tel: fax: Referral ID Status Reason Start Date Expiration Date V Sensoraide Requested Visits Authorized [id number] Authorized Precert 06/11/2024 08/11/2024 999 999 Reason for Visit * Reason Comments NEW PATIENT * Evaluate & Treat - Unlimited Visits (Within 10 days (routine)) - Authorized Specialty Diagnoses / Procedures Referred By Contac t Referred To Contact Cardiovascular Medicine / Cardiology Diagnoses Paroxysmal atrial fibrillation (HCC) Radha Duke[address] [place] [address] Phone: tel: fax: Referral ID Status Reason Start Date Expiration Date Visits Requested Visits Authorized [id number] Authorized Specialty Services Required 06/05/2024 999 [id number] Encounter Details Date Type Department Care Team (Latest Contact Info) Description 06/11/2024 1:00 PM EST Office Visit Cardiology, [facility] [address] [place] [address] Willie Delatorre DO [address] [place] [address] Paroxysmal atrial fibrillation (HCC)*; Aortic root enlargement (HCC); Chronic pancreatitis, unspecified pancreatitis type (HCC); High triglycerides Allergies No known active allergiesdocumented as of this encounter (statuses as of 06/12/2024) Medications buPROPion HCl ER (XL) 300 MG Oral Tablet Extended Release 24 Hour (Wellbutrin XL) Take 1 Tablet by mouth in the morning. 90 Tablet 3 5 Active Additional Information Patient taking differently: 150 mgOral Daily(AM), Reported on 06/11/2024 dilTIAZem HCl ER 120 MG Oral Capsule [...] as of this encounter (statuses as of 06/12/2024) Active Problems Problem Noted Date Diagnosed Date PTSD (post-traumatic stress disorder) 06/05/2024 Paroxysmal atrial fibrillation 06/05/2024 prison current use of anticoagulant therapy 0 06/05/2024 HTN, goal below 130/80 06/05/2024 S/P gastric bypass 06/05/2024 Overview (06/05/2024): RYGB 03/2022. History of diabetes mellitus 06/05/2024 Nocturia 06/05/2024 Seasonal allergies 06/05/2024 Overview (06/05/2024): On allergy shots Peripheral polyneuropathy 06/05/2024 documented as of this encounter (statuses as of 06/12/2024) Immunizations Name Administration Dates Next Due Seasonal [...] Sign Reading Time Taken Comments Blood Pressure 172/100 06/11/2024 12:58 PM EST Pulse 84 06/11/2024 12:58 PM EST Temperature - - Respiratory Rate 16 06/11/2024 12:5 8 PM EST Oxygen Saturation - - Inhaled Oxygen Concentration - - Weight 117.2 kg (258 lb 4.8 oz) 025 12:58 PM EST Height - - Body Mass Index - - documented in this encounter Progress Notes * Willie Delatorre DO - 06/12/2024 9:03 AM EST 06/12/2024 Cardiology Consultation History of Present Illness Cosme Redd is a 53 year old male seen in cardiology consultation per the request of Dr Duke to establish care local cardiology care given his history of paroxysmal atrial fibrillation, hypertension, and family history of coronary heart disease with his father having had a myocardial infarction at the age of 54. 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 He has a history of paroxysmal atrial fibrillation, diagnosed in 2018 with spontaneous conversion to sinus rhythm during his index hospitalization in [place] (2018), and has been on Eliquis since then without any bleeding complications. He reports experiencing palpitations today, which he attributes to anxiety in a new environment. His last echocardiogram in June 2022 showed normal left ventricular wall motion, mild left ventricular hypertrophy, normal ejection fraction of 60-65%, and mild enlargement of the aortic root at 4.1 cm. He also had trace mitral and tricuspid regurgitation. He underwent Chente-en-Y gastric bypass surgery in March 2022, resulting in a weight loss of 130 pounds, though he has regained 40 pounds since moving to [place] a year ago. He has not been exercising regularly since October due to work commitments and describes the winter as 'very depressing'. He has a history of diabetes, which was previously controlled but is now considered prediabetes. He is being monitored for sleep apnea, for which he uses a CPAP machine. No changes in management have been discussed. In advance of his Cardiology visit, he had been referred for a nonfasting lipid panel on 06/05/2024that revealed severe hypertriglyceridemia with triglyceride level in excess of 4,425 pg per mL. He notes recent waxing and waning abdominal discomfort, rated as a 4/10 during his Cardiology visit anddescribes it as a mild discomfort that comes and goes. His lipase level was elevated at 534 units per liter on 06/05/2024. He had in turn been placed on fenofibrate and repeat fasting laboratory studies performed 06/10/2024 revealed interval mild improvement in the lipase to 121 units/liter with persistent elevated triglycerides of greater than 4,425 milligrams per deciliter. Records he had been obtained from his previous Cardiology provider and a progress note dating back to June, referenced a lipid panel performed at that time in the triglyceride level was normal at 62 milligrams/deciliter at that time. He reports a significant change in alcohol consumption, stating he was abstinent for 17 months until recently. He now consumes 8 to 12 beers daily, influenced by stress levels. He also notes eating asignificant amount of candy daily including [employer] and [employer]. 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 Past Surgical History: Procedure Laterality Date GASTRIC BYPASS FOR OBESITY 2021 [place] OPEN TREATMENT NASAL FRACTURE UNCOMPLICATED N/A REPAIR BICEPS TENDON RUPTURE Family History Problem Relation Name Age of Onset Arthritis Mother Cancer Mother "white blood cell" Diabetes Mother Heart Disorder Father Family Status Relation Status Mo Alive Fa Social History Tobacco Use Smoking status: Never Smokeless tobacco: Former Types: Snuff Vaping Use Vaping status: Never Used Substance Use Topics Alcohol use: Yes Comment: 2-8 beers per week Drug use: Never Complete Review of Systems is as stated above, negative, or noncontributory. Review of patient's allergies indicates: No Known Allergies Current Outpatient Medications Medication Sig Dispense Refill buPROPion HCl ER (XL) 300 MG Oral Tablet Extended Release 24 Hour (Wellbutrin XL) Take 1 Tablet by mouth in the morning. (Patient taking differently: Take 150 mg by mouth in the morning.) 90 Tablet 3 dilTIAZem HCl ER 120 [...] meal of the day. 30 Capsule 0 Fenofibrate 145 MG Oral Tablet (Tricor) Take 1 Tablet by mouth in the morning. 30 Tablet 5 Levothyroxine Sodium 50 MCG Oral Tablet (Levoxyl) Take 1 Tablet by mouth in the morning. (at least 30 min prior to breakfast or other meds). 30 Tablet 11 No current facility-administered medications for this visit. OBJECTIVE/PHYSICAL EXAMINATION: BP 172/100 (BP Site: Right Arm) | Pulse 84 | Resp 16 | Wt 117.2 kg (258 lb 4.8 oz) General: no acute distress and stated age Eyes: conjunctiva are pink and non-injected, sclera clear Neck: normal jugular venous pulse, no hepatojugular reflux Chest: normal shape and normal respiratory effort Lungs: clear to auscultation , no rales rhonchi or wheezing Cardiac Exam: - regular heart sounds, no murmurs, rubs, or gallops Abdomen: abdomen soft, non-tender, no abnormal masses and no hepatosplenomegaly Musculoskeletal: no gait disturbance, no weakness Extremities: no edema and no cyanosis Neuro: grossly normal exam Psych: appropriate affect and insight. Results Latest Reference Range & Units 06/05/24 15:22 06/10/24 10:35 Triglycerides <=174 mg/dL >4,425 (H) >4,425 (H) Cholesterol <200 mg/dL 1,323 (H) 1,046 (H) Non-HDL Cholesterol <=159 mg/dL >1,320 (H) >1,043 (H) (C) HDL Cholesterol >39 mg/dL <3 (L) <3 (L) LDL Cholesterol (Direct Measure) <=129 mg/dL 55 26 SODIUM 135 - 146 mmol/L 132 (L) POTASSIUM 3.5 - 5.1 mmol/L 4.1 CHLORIDE 98 - 107 mmol/L 89 (L) CO2 22 - 32 mmol/L 24 BUN 6 - 20 mg/dL 11 CREATININE 0.6 - 1.2 mg/dL 1.0 EGFR >=60 mL/min 89 ANION GAP 7 - 15 mmol/L 19 (H) GLUCOSE 70 - 120 mg/dL 108 CALCIUM 8.4 - 10.2 mg/dL 9.2 Protein 6.0 - 8.3 g/dL 5.6 (L) 5.9 (L) Estimated Average Glucose <126 mg/dL 123 Lipase 13 - 60 U/L 534 (H) 121 (H) 25-Hydroxy Vitamin D >19 ng/mL 35 25-HYDROXY VITAMIN D Rpt Hemoglobin A1C 4.0 - 5.6 % 5.9 (H) TSH 0.27 - 4.20 uIU/mL 4.56 (H) TSH WITH FREE T4 IF INDICATED Rpt ! T4, Free 0.9 - 1.7 ng/dL 0.7 (L) WBC 4.00 - 10.80 K/uL 7.48 RBC 4.50 - 5.25 M/uL 3.84 HGB 14.0 - 16.8 g/dL 13.9 (L) HCT 40.0 - 48.4 % 37.7 (L) MCV 82.0 - 99.5 fL 98.2 MCH 27.0 - 34.0 pg 36.2 MCHC 32.0 - 36.0 g/dL 36.9 RDW 11.5 - 15.5 % 15.1 PLT 140 - 400 K/uL 164 MPV 6.6 - 11.1 fL 10.2 ANEMIA CBC Rpt ! Absolute Neutrophils 1.80 - 7.70 K/uL 4.94 Absolute Lymphocytes 1.00 - 4.80 K/uL 2.09 Absolute Monocytes 0.00 - 1.10 K/uL 0.45 Vitamin B12 232 - 1,245 pg/mL >2,000 (H) Albumin 3.8 - 5.0 g/dL 3.7 (L) 3.2 (L) AST 10 - 50 U/L 499 (H) 211 (H) ALT 10 - 50 U/L 144 (H) 88 (H) Alkaline Phosphatase 35 - 130 U/L 115 146 (H) Bilirubin, Total <=1.2 mg/dL 1.7 (H) 1.3 (H) Bilirubin, Direct 0.0 - 0.3 mg/dL 1.1 (H) (H): Data is abnormally high (L): Data is abnormally low !: Data is abnormal (C): Corrected Rpt: View report in Results Review for more information DIAGNOSTIC Echocardiogram: Normal left ventricular wall motion, mild left ventricular hypertrophy, normal leftventricular ejection fraction (60-65%), mildly enlarged aortic root (4.1 cm), trace mitral regurgitation, trace tricuspid regurgitation (07/02/2022) Nuclear stress test: Normal, ejection fraction 63% (05/2021) EKG performed 06/11/2024 and interpreted independently revealed sinus rhythm at 82 beats per minute, normal EKG. Assessment & Plan Paroxysmal Atrial Fibrillation Diagnosed in 2019. Currently on Eliquis with no bleeding issues. Recent palpitations likely anxiety-induced. Echocardiogram (June 2022) showed normal left ventricular wall motion, mild left ventricular hypertrophy, normal ejection fraction (60-65%), mildly enlarged aortic root (4.1 cm), trace mitral and tricuspid regurgitation. Discussed continuing anticoagulation to prevent stroke and potentialbleeding risks. - Continue Eliquis for now. Although increased bleeding risk noted if in concerns with regards to pancreatitis. - Order echocardiogram for updated assessment Pancreatitis Recent diagnosis with elevated lipase (534, improved 121). Mild, intermittent abdominal pain (07/25). Concern for complications due to high triglycerides and anticoagulation treatment. Discussed risk of severe pancreatitis and potential hemorrhage. - Order CT scan to assess pancreas and gallbladder - Coordinate care with Dr. David Hypertriglyceridemia Extremely elevated triglycerides (>4400 mg/dL), significant increase from 2022. Likely exacerbated by high alcohol intake (8-12 beers/day). Another potential factor is had some patients can be exquisitely sensitive to fructose intake and he has therefore counseled to cease his candy intake immediately. - Advise reduction of alcohol intake-coordinate with Case Management and primary care with regards to referral for alcohol rehabilitation - medications were reviewed did not include potential side effects of exacerbating hypertriglyceridemia. -although the triglyceride levels are very high to just be due to alcohol intake, his previous normal triglyceride level of 62 milligrams/deciliter in 2022 would suggest that the patient does not have an inherited genetic disorder such as hyperchylomicronemia. - Order CT scan to assess pancreas, currently scheduled for 06/26/2024, but I reached out to the CTdepartment and we are working on expediting a sooner appointment. -we will work on optimizing the patient's medical therapy for hypertriglyceridemia with considerations of adding Vascepa and Niaspan. Obesity Status Post Bariatric Surgery Chente-en-Y gastric bypass in March 2022. Initial weight loss of 130 lbs, recent regain of 40 lbs.Impact on overall health and comorbid conditions. Discussed importance of maintaining weight loss for cardiovascular health. Follow-up - Coordinate care with Dr. David - Schedule follow-up appointment after CT scan results. Willie Delatorre DO Department of Cardiology This visit involved medical care services related to at least one serious condition or complex condition requiring ongoing care. This chart was completed in part utilizing [employer] Speech Voice Recognition Software. Grammatical errors, random word insertions, prounoun errors, and incomplete sentences are an occasional consequence of this system due to software limitations, ambient noise, and hardware issues. Any formal questions or concerns about the content, text, or information contained within the body of this dictation should be directly addressed to the provider for clarification. Text in this note was generated using an ambient documentation service. I discussed the use of a device to record and summarize our discussion today. All persons present during the encounter consented to its use. * Willie Delatorre DO - 06/11/2024 1:15 PM EST Note created in error. Refer to separate progress note. Willie Delatorre DO documented in this encounter Procedure Notes * Lopez Fish DO - 06/11/2024 1:07 PM ESTAssociated Order(s): EKG REASON FOR STUDY: New patient -afib;New patient -afib CONCLUSIONS: Normal sinus rhythm Normal ECG No previous ECGs available Ventricular Rate: 82 Atrial Rate: 82 NV Interval: 168 QRS Duration: 84 QT/QTc: 368/429 ms P-R-T Dover: 64 : 61 : 44 degrees documented in this encounter Nursing Notes * Kanika Becerra CMA - 06/11/2024 12:50 PM EST Examination Room: 10 Name: Cosme Redd Date of : (1970). Reason for Visit: New - afib Interim Hospitalization(s): denies Problems/Concerns: Establish care locally for afib Chest Pain/SOB: Reports CP and SOB worsening over past few weeks always with exertion. [facility] Discussed: Yes [facility] is a way you can talk to your provider online through e-mail. Would you like to sign up? I can activate it for you? ALREADY ACTIVE Patient was instructed to not get up on the exam table until directed and assisted by their provider; patient is to remain seated in the chair/ wheelchair/ exam table for fall prevention and safety reasons. Patient is aware to have assistance to step down off exam table with personnel. Patient voiced full comprehension of instructions. documented in this encounter Plan of Treatment Upcoming Encounters Date Type Department Care Team (Late st Contact Info) Description 06/13/2024 12:00 PM EST Telemedicine Cardiology [facility] [address] [facility] [place] [address] Lori Rivas MD [address] [facility] [place] [address] 06/19/2024 4:00 PM EST Nurse Only Ancillary [address] [place] [address] Jame, Nurse [address] [place] [address] 06/26/2024 3:15 PM EDT Imaging Radiology [facility] [address] [facility] [place] [id number] 07/01/2024 4:00 PM EDT Cardiac Studies Cardiac Studies, [facility] [address] [facility] [place] [address] 01/03/2025 2:30 PM EDT Office Visit Family Medicine [address] [place] [phone] Radha Duke DO [address] [place] [address] [place] [address] Scheduled Orders Name Type Priority Associated Diagnoses Orde r Schedule ECHO, COMPLETE (2D), TRANS-THORACIC Echocardiology Routine Paroxysmal atrial fibrillation (HCC) Aortic root enlargement (HCC) Expected: 06/11/2024 (Approximate), Expires: 06/11/2025 CT PANCREAS W WO IV AND W ORAL CONTRAST Medical Imaging Routine Chronic pancreatitis, unspecified pancreatitis type (HCC) High triglycerides Expected: 06/12/2024, Expires: 07/09/2025 Health Maintenance Due Date Last Done Comments [...] 07/24/2018 Colorectal Cancer Screening 07/24/2028 Lipid Panel 06/10/2029 06/10/2024, 06/05/2024 Zoster Vaccines Completed 11/17/2020, 08/25/2020 Pneumococcal [...] Not on filedocumented as of this encounter Procedures Procedure Name Priority Date/Time Associated Diagnosis Comments NV ECG ROUTINE ECG W/LEAST 12 LDS W/I&R Routine 06/11/2024 1:07 PM EST Paroxysmal atrial fibrillation (HCC) documented in this encounter Results * EKG (06/11/2024 1:07 PM EST) 06/11/2024 1:07 PM EST Narrative Procedure Note Lopez Fish DO - 06/11/2024 1:07 PM EST REASON FOR STUDY: New patient -afib;New patient -afib CONCLUSIONS: Normal sinus rhythm Normal ECG No previous ECGs available Ventricular Rate: 82 Atrial Rate: 82 NV Interval: 168 QRS Duration: 84 QT/QTc: 368/429 ms P-R-T [place]: 64 : 61 : 44 degrees Willie Delatorre DO EKG Final Result [facility] documented in this encounter Visit Diagnoses Diagnosis Paroxysmal atrial fibrillation (HCC)- Primary Atrial fibrillation Aortic root enlargement (HCC) Other specified disorders of arteries and arterioles Chronic pancreatitis, unspecified pancreatitis type (HCC) High triglycerides Pure hyperglyceridemia documented in this encounter Care Teams Laboratory Technical Specialist Relationship Specialty Start Date End Date Radha Duke DO [address] [place] [address] [place] [address] PCP - General Internal Medicine 06/05/24 documented as of this encounter
--- OUTSIDE RECORDS SUMMARY | 2024-06-13 06:13 | External Medical Summary | Summary of Care ---
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 Came here thinking we were an Urgent Care. Brought pt back to evaluate: States he has chest pain, lightheadedness, fatigue. Pt skin cool &clammy. PERRLA. BP 160/104 (Pt has HTN), O2 97, HR 82. Pt did not want to be seen and wanted to leave the clinic immediately to go to the ER. I offered joelle DURAN to transport, he declined. Coworkers took him by vehicle. documented in this encounter Plan of Treatment Upcoming Encounters Date Type Department Care Team (Late st Contact Info) Description 06/13/2024 12:00 PM EST Telemedicine Cardiology [facility] [address] [facility] [place] [address] Lori Rivas MD [address] [facility] [address] 06/19/2024 4:00 PM EST Nurse Only Ancillary [address] [place] [address] Jame, Nurse [address] [place] [address] 06/26/2024 3:15 PM EDT Imaging Radiology [facility] [address] [facility] [place] [phone] 07/01/2024 4:00 PM EDT Cardiac Studies [facility] [place] [address] 01/03/2025 2:30 PM EDT Office Visit Family Medicine [address] [place] [phone] Radha Duke [address] [place] [address] Health Maintenance Due Date Last Done Comments [...] Not on filedocumented as of this encounter Care Teams Coil Finisher Relationship Specialty Start Date End Date Radha Duke DO [address] [place] [address] [place] [address] PCP - General Internal Medicine 06/05/24 documented as of this encounter
[2024-06-13 07:56] LABS: Hematocrit (blood only) 30.3 % (42.0-52.0); Hemoglobin 11.5 g/dl (14.0-18.0); Mean Corpuscular Hemoglobin 33.7 pg (25.0-34.0); Mean Corpuscular Hgb Conc 36.2 g/dL (32.0-36.0); Mean Corpuscular Volume 93.3 fL (80.0-100.0); Mean Platelet Volume 9.3 fL (9.4-12.4); Platelet Count 214 K/uL (130-400); Platelet Estimate Normal (Normal); RDW Coefficient of Variation 15.7 % (11.5-14.5); RDW Standard Deviation 51.8 fL (36.4-46.3); Red Blood Count 3.31 M/uL (4.70-6.10); White Blood Count 5.11 K/ul (4.8-10.8)
[2024-06-13] MEDS: buPROPion SR 150 MG TABCR PO SCH (08:06)
[2024-06-13] MEDS: dilTIAZem HCL 120 MG CAPCR PO SCH (08:06)
[2024-06-13] MEDS: PANTOprazole 40 MG TAB PO SCH (08:07)
[2024-06-13] MEDS: FLUTICASONE PROPIONATE NA SPR 16 GM BTL NAE SCH (08:07)
[2024-06-13] MEDS: FENOFIBRATE NANOCRYSTALLIZED 145 MG TABLET PO SCH (08:07)
[2024-06-13] MEDS: FOLIC ACID 1 MG in SYRINGE 9.8 ML IV SCH (08:07)
[2024-06-13] MEDS: THIAMINE HCL 100 MG in SYRINGE 9 ML IV SCH (08:08)
--- NOTE | 2024-06-13 08:13 | Oncology Consultation ---
Date of Consultation June 13, 2024 Assessment & Plan (1) Liver mass: (2) Abdominal pain: (3) Elevated LFTs: Plan Based on imaging and clinical history, suspect Hepatocellular carcinoma. Recommend MRI liver protocol and biopsy of Liver lesion. Agree with AFP. Treatment options will depend on results of testing. Thanks for this consult. Please call if you have questions History of Present Illness Reason for Consultation: Liver mass Attending Physician: Aroldo Elkins MD History of Present Illness 53 year old gentleman who presented to ER with chest and abdominal pain. Labs revealed elevated LFTs and CT A/P revealed left lobe liver mass. He endorses significant history of alcohol use. Allergies Allergy/AdvReac Type Severity Reaction Status Date / Time No Known Allergies Allergy Unverified 06/12/24 17:14 Home Medications Medication Instructions Recorded Confirmed Type apixaban 5 mg tablet (Eliquis) 5 mg PO BID 11/27/23 06/12/24 History azelastine 137 mcg (0.1 %) nasal 2 spray intranasal BID PRN nasal 11/27/23 06/12/24 Rx spray congestion #30 mL bupropion HCl 150 mg tablet,12 hr 150 mg PO DAILY 11/27/23 06/12/24 History sustained-release (Wellbutrin SR) diltiazem HCl 120 mg capsule,24 120 mg PO DAILY 11/27/23 06/12/24 History hr,extended release fluticasone propionate 50 2 spray intranasal DAILY #16 grams 11/27/23 06/12/24 Rx mcg/actuation nasal spray,suspension ipratropium bromide 21 mcg (0.03 2 spray intranasal TID PRN 11/27/23 06/12/24 Rx %) nasal spray postnasal drip #30 mL nebivolol 20 mg tablet (Bystolic) 20 mg PO DAILY 11/27/23 06/12/24 History fenofibrate nanocrystallized 145 145 mg PO QAM 06/12/24 06/12/24 History mg tablet levothyroxine 50 mcg tablet 50 mcg PO QAM 06/12/24 06/12/24 History omeprazole 20 mg capsule,delayed 20 mg PO QAM 06/12/24 06/12/24 History release Patient History Medical History (Updated 06/12/24 @ 19:08 by Jyoti Villalpando PA-C) Obesity PTSD (post-traumatic stress disorder) PAF (paroxysmal atrial fibrillation) JACOB (obstructive sleep apnea) Hypertension Surgical History (Updated 06/12/24 @ 19:00 by Jyoti Villalpando PA-C) H/O gastric bypass Family History (Updated 06/12/24 @ 19:01 by Jyoti Villalpando PA-C) Father Heart disease Mother Diabetes Social History Smoking Status: Never smoker Tobacco Type: Declines Second Hand Exposure: No; Do You Dip or Chew Tobacco: No; Tobacco Cessation Education Requested by Patient: No Hx Alcohol Use: Yes Alcohol type: beer Hx Substance Use: No Preferred Language: Welsh Communication Ability: Effective Head Of [employer] Required: No Beliefs That Will Affect Care: None Current Living Situation: Alone Other Information That Helps Us Care for You: No Feels Safe at Home: Yes Safety Concerns: Feels Safe At This Time Assistive Devices: None Results & Data Vital Signs (Past 12 Hours) Vital Signs Temp Pulse Pulse Resp BP BP Pulse Ox 06/13/24 04:45 37.4 C 90 21 143/84 H 95 06/13/24 02:55 36.7 C 89 17 157/91 H 96 06/13/24 02:52 16 96 06/13/24 00:03 37.1 C 21 165/98 H 96 06/12/24 23:00 06/12/24 22:01 88 20 166/95 H 98 06/12/24 21:00 88 17 159/87 H 96 06/12/24 20:49 90 06/12/24 20:30 89 17 147/83 H 96 O2 Del Method FiO2 06/13/24 04:45 Room Air 06/13/24 02:55 CPAP 06/13/24 02:52 21 06/13/24 00:03 Room Air 06/12/24 23:00 Room Air 06/12/24 22:01 06/12/24 21:00 06/12/24 20:49 06/12/24 20:30
[2024-06-13] MEDS: METOPROLOL TARTRATE 100 MG TAB PO SCH (08:28)
[2024-06-13 08:40] LABS: Bilirubin,Total 2.3 mg/dl (0.2-1.0); Calcium 8.6 mg/dl (8.6-10.3); Potassium 3.5 mmol/L (3.5-5.1)
[2024-06-13 08:47] LABS: BUN Creatinine Ratio 9.5 (10-20); Creatinine Clr Calc Pharmacy 118.1 ml/min
[2024-06-13 09:29] LABS: Hep B Surface Ag with confirm Negative (Negative)
[2024-06-13 09:34] LABS: Hep C Ab Rflx HepCQuant RNA Negative (Negative)
[2024-06-13] MEDS ORDERED: PHARMACY GLYCEMIC MGMT CONSULT PRN (14:57)
[2024-06-13] MEDS ORDERED: STAT IV Infusion **Titration per Protocol STA (14:57)
[2024-06-13] MEDS ORDERED: INSULIN REGULAR 250 UNITS in SODIUM CHLORIDE 0.9% 247.5 ML IV SCH (15:00)
[2024-06-13] MEDS ORDERED: GLUCAGON FOR INJ 1 MG VIAL SQ PRN (15:15)
[2024-06-13] MEDS ORDERED: GLUCOSE 10 TAB/TUBE PO PRN (15:15)
[2024-06-13] MEDS ORDERED: GLUCOSE 40% GEL 15 GM TUBE PO PRN (15:15)
[2024-06-13] MEDS: DEXTROSE 5% 500 ML IV SCH (15:50)
[2024-06-13] MEDS: DKA GOAL RANGE 150-250 mg/dl ONE (15:51)
[2024-06-13] MEDS: INSULIN REGULAR 250 UNITS in SODIUM CHLORIDE 0.9% 247.5 ML IV SCH (16:19)
[2024-06-13 17:06] LABS: Calcium 8.7 mg/dl (8.6-10.3); Magnesium 1.6 mg/dl (1.7-2.4); Potassium 3.5 mmol/L (3.5-5.1)
--- NOTE | 2024-06-13 17:06 | Endocrinology Progress Note ---
Date of Service June 13, 2024 Assessment & Plan (1) Hypertriglyceridemia: Plan: Patient was admitted with hypertriglyceridemia and pancreatitis with high lipase as well as high triglycerides over 6000. He also has a history of alcohol abuse. He will need treatment with IV insulin along with the IV glucose. The protocol is already designed and is run by pharmacy. That can be started today and the triglyceride should be followed every 24 hours. Once the triglycerides reach less than 1000 preferably less than 500 the protocol can be discontinued. We will see the patient in follow-up in 2 weeks for further evaluation. Admission and Anticipated Discharge Date Admission Date: June 12, 2024 Subjective Hypertriglyceridemia the consult was done via [facility] to the hospitalist group Results & Data Vital Signs (Past 12 Hours) Vital Signs Temp Pulse Pulse Resp BP Pulse Ox O2 Del Method 06/13/24 15:00 37.3 C 81 14 160/94 H 94 Room Air 06/13/24 14:30 79 06/13/24 11:27 36.8 C 81 16 151/95 H 92 Room Air 06/13/24 10:31 Room Air 06/13/24 08:00 89 06/13/24 08:00 37.1 C 89 18 151/89 H 94 Room Air
[2024-06-13 17:12] LABS: BUN Creatinine Ratio 6.5 (10-20); Creatinine Clr Calc Pharmacy 121.9 ml/min; Phosphorus 2.9 mg/dl (2.5-4.9)
[2024-06-13] MEDS: CARBOHYDRATES FOR HYPOGLYCEMIA PO PRN (18:22)
[2024-06-13 19:37] LABS: Calcium 9.1 mg/dl (8.6-10.3); Magnesium 1.8 mg/dl (1.7-2.4); Potassium 3.2 mmol/L (3.5-5.1)
[2024-06-13 19:42] LABS: BUN Creatinine Ratio 5.4 (10-20); Phosphorus 2.5 mg/dl (2.5-4.9)
[2024-06-13] MEDS: DEXTROSE 50% 50 ML SYRINGE IV PRN (19:45)
--- NOTE | 2024-06-13 19:57 | Hospitalist Progress Note ---
Date of Service June 13, 2024 Assessment & Plan (1) Chest pain: Plan: Patient is 53 year old male with PMH paroxysmal atrial fibrillation, anticoagulated on Eliquis, HTN, obesity s/p gastric bypass 03/2022, prior history DM II that has improved since weight loss and reports is now prediabetic, PTSD, JACOB, ETOH abuse presented to ER with c/o chest pain today. CT chest: No PE or aortic dissection. R/O ACS. Risk factors: HTN, hyperlipidemia, DM, obesity, FH -echo unremarkable, troponin negative x3 -f/u with cardiology outpatient (2) Abdominal pain: (3) Elevated LFTs: Plan: Intermittent abdominal pain past week Denies current abdominal pain CT abd/pelvis: 1.Left hepatic lobe mass concerning for neoplasm. 2. No pulmonary embolus5 or aortic dissection. 3. There is a 2.0 x 1.7 cm right thyroid nodule. Ultrasound recommended if not already known. 4. 1.4 cm greatest diameter left adrenal nodule probably an adenoma but somewhat more dense than typical. If there is no history of malignancy consider a follow-up low dose, non-contrast adrenal CT or chemical-shift adrenal MRI in 12 months. If there is a history of malignancy recommend a low dose, non-emergent, non-contrast adrenal CT or chemical-shift adrenal MRI follow-up study. 5. There is mild thickening of the urinary bladder which is incompletely distended. Correlate with urinalysis for cystitis. Today Lipase: 149. T Bili: 1.8. AST:158. ALT: 66. Alk Phos: 112. INR: 1.0 (06/05/24: lipase: 534, T. bili: 1.7, AST: 499, ALT: 144, alk phos: 115) #ETOH Abuse -Drinks 12 beers daily -Alcohol withdrawal protocol with gabapentin and Ativan -IV thiamine and IV folic acid for now. Plan to convert to oral and add multivitamin when able -Seizure precautions (4) Hypertriglyceridemia: Plan: Outpatient labs 06/05/2024: Triglycerides >4425, total cholesterol: 1323, HDL <3, LDL: 55, lipase: 534, T. bili: 1.7, AST: 499, ALT: 144, alk phos: 115 Plan: -endocrine consult, appreciate recs -insulin drip to decrease triglycerides, closely monitor labs (5) Liver mass: Plan: CT Abd/pelvis: 1.4 cm greatest diameter left adrenal nodule probably an adenoma but somewhat more dense than typical. If there is no history of malignancy consider a follow-up low dose, non-contrast adrenal CT or chemical-shift adrenal MRI in 12 months. If there is a history of malignancy recommend a low dose, non-emergent, non-contrast adrenal CT or chemical-shift adrenal MRI follow-up study. -Oncology consult -appreciate oncology consultation -f/u liver mass workup, labwork (6) PAF (paroxysmal atrial fibrillation): Plan: Anticoagulated on Eliquis Current sinus rhythm Hold Eliquis Continue nebivolol, diltiazem (7) Hypertension: Plan: Continue nebivolol, diltiazem (8) JACOB (obstructive sleep apnea): Plan: CPAP HS (9) PTSD (post-traumatic stress disorder): Plan: Continue bupropion (10) Obesity: Plan: -S/P gastric bypass -Gained 45 pounds in past 9 months (11) Thyroid nodule: Plan: CT Chest: There is a 2.0 x 1.7 cm right thyroid nodule. will need non emergent ultrasound to follow up Feeding/fluids: low fat Analgesia: tylenol Sedation: na Thromboprophylaxis: SCD Head up position: na Ulcer prophylaxis: protonix Glycemic control: insulin drip Spontaneous breathing trial: na Bowel care: start miralax prn Indwelling catheter removal: na Deescalation of antibiotics: na I spent a total of 60 minutes in direct patient care, including [id number] time with the patient and/or family, reviewing medical records, ordering and reviewing diagnostic tests, and coordinating care with other healthcare providers. This time includes: history taking, physical examination, medical decision making, counseling, ECG interpretation, imaging interpretation, lab interpretation, orders, and education, excluding time spent in the performance of separately billed services. Admission and Anticipated Discharge Date Admission Date: June 12, 2024 Subjective Patient seen and examined at bedside. We discussed his extremely high triglyceride count and need to start an insulin drip in order to treat it. We also discussed the liver mass that is concerning for malignancy found on imaging. He was appropriately overwhelmed with the news but appreciative of the update. We discussed next steps in treatment for both triglycerides and further mass, he was appreciative of the update and plan. Review of Systems Review of Systems: CONSTITUTIONAL: Patient denies fevers, chills, sweats and weight changes. EYES: Patient denies any visual symptoms. EARS, NOSE, AND THROAT: No difficulties with hearing. No symptoms of rhinitis or sore throat. CARDIOVASCULAR: Patient denies chest pains, palpitations, orthopnea and paroxysmal nocturnal dyspnea. RESPIRATORY: No dyspnea on exertion, no wheezing or cough. GI: No nausea, vomiting, diarrhea, constipation, abdominal pain, hematochezia or melena. : No urinary hesitancy or dribbling. No nocturia or urinary frequency. No abnormal urethral discharge. MUSCULOSKELETAL: No myalgias or arthralgias. NEUROLOGIC: No chronic headaches, no seizures. Patient denies numbness, tingling or weakness. PSYCHIATRIC: Patient denies problems with mood disturbance. No problems with anxiety. ENDOCRINE: No excessive urination or excessive thirst. DERMATOLOGIC: Patient denies any rashes or skin changes. Physical Exam Physical Exam: Gen: A&O 3 NAD HEENT: NCAT, EOMI, not icteric. External ears normal. No rhinorrhea. Moist mucous membranes. Neck: Supple, full range of motion, no observable masses, No meningeal sign. Lungs: No Respiratory distress. CV: RRR, no edema. Abdomen: Soft, nondistended, No rebound tenderness. MSK: No joint swelling, no redness. Skin: No rashes, petechiae, lesions. Normal color per patient. Neuro: Normal Gait, Grossly intact. Psych: Appropriate for situation. Results & Data Results & Data Vital Signs (Past 12 Hours) Vital Signs Temp Pulse Pulse Resp BP Pulse Ox O2 Del Method 06/13/24 19:11 36.8 C 82 18 118/77 95 Room Air 06/13/24 15:00 37.3 C 81 14 160/94 H 94 Room Air 06/13/24 14:30 79 06/13/24 11:27 36.8 C 81 16 151/95 H 92 Room Air 06/13/24 10:31 Room Air 06/13/24 08:00 89 06/13/24 08:00 37.1 C 89 18 151/89 H 94 Room Air Laboratory Results -personally reviewed, significant triglycerides likely cause of recurrent pancreatitis and risk factors for other health issues,
[2024-06-13] MEDS: POTASSIUM CHLORIDE CRTAB 20 MEQ TABCR PO STA ×2 (21:29→22:24)
[2024-06-13] MEDS: D5W AND NSS 1,000 ML IV SCH (21:30)
[2024-06-13] MEDS: POTASSIUM CHLORIDE 20 MEQ in D5W AND NSS 1,000 ML IV SCH (21:30)
[2024-06-13] MEDS: MAGNESIUM SULFATE / D5W 1 GM/100 ML BAG IV SCH (22:24)
[2024-06-13] MEDS: POTASSIUM CHLORIDE 40 MEQ in D5W AND NSS 1,000 ML IV SCH (22:24)
[2024-06-14 00:13] LABS: BUN Creatinine Ratio 5.6 (10-20); Calcium 8.4 mg/dl (8.6-10.3); Creatinine Clr Calc Pharmacy 103.9 ml/min; Phosphorus 2.3 mg/dl (2.5-4.9)
[2024-06-14 00:38] LABS: Magnesium 1.7 mg/dl (1.7-2.4); Potassium 3.8 mmol/L (3.5-5.1)
[2024-06-14] MEDS: DEXTROSE 10% IV SCH (01:20)
[2024-06-14] MEDS: POTASSIUM CHLORIDE IV SCH (01:20)
[2024-06-14] MEDS: SODI CHLOR IV SCH (01:20)
[2024-06-14] MEDS: LORazepam 0.5 MG TAB PO ONE (01:46)
[2024-06-14] MEDS: LORazepam 2 MG/1 ML VIAL IV PRN ×2 (02:49→04:47)
[2024-06-14 03:57] LABS: BUN Creatinine Ratio 5.3 (10-20); Calcium 6.6 mg/dl (8.6-10.3); Creatinine Clr Calc Pharmacy 119.3 ml/min; Magnesium 1.8 mg/dl (1.7-2.4); Potassium 5.1 mmol/L (3.5-5.1)
--- NOTE | 2024-06-14 06:08 | Electrocardiogram Report ---
Test Reason : Blood Pressure : */* mmHG Vent. Rate : 80 BPM Atrial Rate : 80 BPM P-R Int : 174 ms QRS Dur : 84 ms QT Int : 370 ms P-R-T Axes : 65 3 17 degrees QTcB Int : 426 ms Normal sinus rhythm Nonspecific T wave abnormality No previous ECGs available Confirmed by Andrew Driscoll ([id number]) on 06/14/2024 6:08:34 AM Referred By: Confirmed By: Andrew Driscoll
--- NOTE | 2024-06-14 06:09 | Electrocardiogram Report ---
Test Reason : Blood Pressure : */* mmHG Vent. Rate : 90 BPM Atrial Rate : 90 BPM P-R Int : 178 ms QRS Dur : 84 ms QT Int : 362 ms P-R-T Axes : 54 50 33 degrees QTcB Int : 442 ms Normal sinus rhythm Abnormal ECG When compared with ECG of 12-Jun-2024 12:05, T wave inversion more evident in Anterior leads Confirmed by Andrew Driscoll ([id number]) on 06/14/2024 6:09:26 AM Referred By: REFERRED SELF Confirmed By: Andrew Driscoll
[2024-06-14 07:50] LABS: BUN Creatinine Ratio 5.4 (10-20); Calcium 7.9 mg/dl (8.6-10.3); Creatinine Clr Calc Pharmacy 151.6 ml/min; Magnesium 1.8 mg/dl (1.7-2.4); Phosphorus 1.8 mg/dl (2.5-4.9); Potassium 3.7 mmol/L (3.5-5.1)
[2024-06-14] MEDS: GABAPENTIN 600 MG TAB PO SCH ×2 (10:11→23:13)
[2024-06-14 11:49] LABS: Magnesium 1.6 mg/dl (1.7-2.4); Potassium 4.1 mmol/L (3.5-5.1)
[2024-06-14 11:54] LABS: BUN Creatinine Ratio 4.6 (10-20); Phosphorus 1.9 mg/dl (2.5-4.9)
[2024-06-14 12:23] LABS: Hepatitis A Antibody IgM NON-REACTIVE (NON-REACTIVE); Hepatitis B Core Antibody IgM NON-REACTIVE (NON-REACTIVE)
--- NOTE | 2024-06-14 15:48 | Hospitalist Progress Note ---
Date of Service June 14, 2024 Assessment & Plan (1) Chest pain: Plan: Patient is 53 year old male with PMH paroxysmal atrial fibrillation, anticoagulated on Eliquis, HTN, obesity s/p gastric bypass 03/2022, prior history DM II that has improved since weight loss and reports is now prediabetic, PTSD, JACOB, ETOH abuse presented to ER with c/o chest pain today. CT chest: No PE or aortic dissection. R/O ACS. Risk factors: HTN, hyperlipidemia, DM, obesity, FH -echo unremarkable, troponin negative x3 -f/u with cardiology outpatient (2) Abdominal pain: (3) Elevated LFTs: Plan: Intermittent abdominal pain past week Denies current abdominal pain CT abd/pelvis: 1.Left hepatic lobe mass concerning for neoplasm. 2. No pulmonary embolus5 or aortic dissection. 3. There is a 2.0 x 1.7 cm right thyroid nodule. Ultrasound recommended if not already known. 4. 1.4 cm greatest diameter left adrenal nodule probably an adenoma but somewhat more dense than typical. If there is no history of malignancy consider a follow-up low dose, non-contrast adrenal CT or chemical-shift adrenal MRI in 12 months. If there is a history of malignancy recommend a low dose, non-emergent, non-contrast adrenal CT or chemical-shift adrenal MRI follow-up study. 5. There is mild thickening of the urinary bladder which is incompletely distended. Correlate with urinalysis for cystitis. Today Lipase: 149. T Bili: 1.8. AST:158. ALT: 66. Alk Phos: 112. INR: 1.0 (06/05/24: lipase: 534, T. bili: 1.7, AST: 499, ALT: 144, alk phos: 115) #ETOH Abuse -Drinks 12 beers daily -has significant withdrawal symptoms -IV thiamine and IV folic acid for now. Plan to convert to oral and add multivitamin when able -Seizure precautions (4) Hypertriglyceridemia: Plan: Outpatient labs 06/05/2024: Triglycerides >4425, total cholesterol: 1323, HDL <3, LDL: 55, lipase: 534, T. bili: 1.7, AST: 499, ALT: 144, alk phos: 115 Plan: -endocrine consult, appreciate recs -insulin drip to decrease triglycerides, closely monitor labs -replenish electrolytes as needed (5) Liver mass: Plan: CT Abd/pelvis: 1.4 cm greatest diameter left adrenal nodule probably an adenoma but somewhat more dense than typical. If there is no history of malignancy consider a follow-up low dose, non-contrast adrenal CT or chemical-shift adrenal MRI in 12 months. If there is a history of malignancy recommend a low dose, non-emergent, non-contrast adrenal CT or chemical-shift adrenal MRI follow-up study. -likely hepatocellular carcinoma in setting of significant alcohol use, also concerning regarding adrenal met -Oncology consult -appreciate oncology consultation -f/u liver mass workup, labwork (6) PAF (paroxysmal atrial fibrillation): Plan: Anticoagulated on Eliquis Current sinus rhythm Hold Eliquis Continue nebivolol, diltiazem (7) Hypertension: Plan: Continue nebivolol, diltiazem (8) JACOB (obstructive sleep apnea): Plan: CPAP HS (9) PTSD (post-traumatic stress disorder): Plan: Continue bupropion (10) Obesity: Plan: -S/P gastric bypass -Gained 45 pounds in past 9 months (11) Thyroid nodule: Plan: CT Chest: There is a 2.0 x 1.7 cm right thyroid nodule. will need non emergent ultrasound to follow up Feeding/fluids: low fat Analgesia: tylenol Sedation: na Thromboprophylaxis: SCD Head up position: na Ulcer prophylaxis: protonix Glycemic control: insulin drip Spontaneous breathing trial: na Bowel care: start miralax prn Indwelling catheter removal: na Deescalation of antibiotics: na I spent a total of 55 minutes in direct patient care, including [id number] time with the patient and/or family, reviewing medical records, ordering and reviewing diagnostic tests, and coordinating care with other healthcare providers. This time includes: history taking, physical examination, medical decision making, counseling, ECG interpretation, imaging interpretation, lab interpretation, orders, and education, excluding time spent in the performance of separately billed services. Admission and Anticipated Discharge Date Admission Date: June 12, 2024 Subjective Patient seen and examined at bedside. Patient had a very rough night. He had bad alcohol withdrawal, pulled out his IV and refused further medications. This morning, appears to be doing much better. Does appear to be in significant withdrawal, noted by tremors and overall appearance. Mentation is also not great at this time Review of Systems Review of Systems: CONSTITUTIONAL: Patient denies fevers, chills, sweats and weight changes. EYES: Patient denies any visual symptoms. EARS, NOSE, AND THROAT: No difficulties with hearing. No symptoms of rhinitis or sore throat. CARDIOVASCULAR: Patient denies chest pains, palpitations, orthopnea and paroxysmal nocturnal dyspnea. RESPIRATORY: No dyspnea on exertion, no wheezing or cough. GI: No nausea, vomiting, diarrhea, constipation, abdominal pain, hematochezia or melena. : No urinary hesitancy or dribbling. No nocturia or urinary frequency. No a bnormal urethral discharge. MUSCULOSKELETAL: No myalgias or arthralgias. NEUROLOGIC: No chronic headaches, no seizures. Patient denies numbness, tingling or weakness. PSYCHIATRIC: Patient denies problems with mood disturbance. No problems with anxiety. ENDOCRINE: No excessive urination or excessive thirst. DERMATOLOGIC: Patient denies any rashes or skin changes. Physical Exam Physical Exam: Gen: A&O 2-3 NAD HEENT: NCAT, EOMI, not icteric. External ears normal. No rhinorrhea. Moist mucous membranes. Neck: Supple, full range of motion, no observable masses, No meningeal sign. Lungs: No Respiratory distress. CV: RRR, no edema. Abdomen: Soft, nondistended, No rebound tenderness. MSK: No joint swelling, no redness. Skin: No rashes, petechiae, lesions. Normal color per patient. Neuro: Normal Gait, Grossly intact. Tremors noted Psych: appears to be withdrawing Results & Data Results & Data Vital Signs (Past 12 Hours) Vital Signs Temp Pulse Pulse Resp BP Pulse Ox O2 Del Method 06/14/24 12:42 36.4 C 78 19 129/84 96 Room Air 06/14/24 08:00 75 06/14/24 07:41 36.9 C 74 19 134/81 95 Room Air Laboratory Results -personally reviewed, triglycerides downtrended into 1999s, phos low at 1.9, Mg low at 1.6 Medications Administered Bupropion HCl (Bupropion Sr 150 Mg Tabcr) 150 mg PO DAILY JOSIAH Stop: 07/13/24 08:59 Last Admin: 06/14/24 10:13 Dose: 150 mg Documented By: Admin: 06/13/24 08:06 Dose: 150 mg Documented By: KRISHNA Dextrose (Dextrose 50% 50 Ml Syringe) 25 ml IV UD PRN PRN Reason: BSG below 70mg/dL Stop: 07/13/24 15:09 Last Admin: 06/14/24 04:55 Dose: 25 ml Documented By: Admin: 06/14/24 04:01 Dose: 25 ml Documented By: Admin: 06/13/24 19:45 Dose: 25 ml Documented By: KELLI Diltiazem HCl (Diltiazem Hcl 120 Mg Capcr) 120 mg PO DAILY [facility] Stop: 07/13/24 08:59 Last Admin: 06/14/24 10:11 Dose: 120 mg Documented By: Admin: 06/13/24 08:06 Dose: 120 mg Documented By: KRISHNA Fenofibrate (Fenofibrate Nanocrystallized 145 Mg Tablet) 145 mg PO QAM [facility] Stop: 07/13/24 08:59 Last Admin: 06/14/24 10:11 Dose: 145 mg Documented By: Admin: 06/13/24 08:07 Dose: 145 mg Documented By: KRISHNA Fluticasone Propionate (Fluticasone Propionate Na Spr 16 Gm Btl) 2 sprays AGGIE DAILY [facility] Stop: 07/13/24 08:59 Last Admin: 06/14/24 10:11 Dose: 2 sprays Documented By: Admin: 06/13/24 08:07 Dose: 2 sprays Documented By: KRISHNA Gabapentin (Gabapentin 600 Mg Tab) 600 mg PO Q24H [facility] Stop: 06/16/24 10:01 Last Admin: 06/14/24 10:11 Dose: 600 mg Documented By: NIMISHA Insulin Human Regular 250 (units/ Sodium Chloride) 250 mls @ 0 mls/hr IV .Q0M JOSIAH; Protocol Stop: 07/13/24 15:14 Last Infusion: 06/14/24 05:31 Dose: 0 units/kg/hr, 0 mls/hr Documented By: KELLI Co-signed By: [facility] Infusion: 06/13/24 22:49 Dose: 0.1 units/kg/hr, 11.5 mls/hr Documented By: KELLI Co-signed By: [facility] Infusion: 06/13/24 20:58 Dose: 0 units/kg/hr, 0 mls/hr Documented By: KELLI Co-signed By: [facility] Admin: 06/13/24 16:19 Dose: 0.1 units/kg/hr, 11.5 mls/hr Documented By: KRISHNA Co-signed By: MIMI Sodium Chloride 77 meq/Potassium Chloride 40 meq/Dextrose 1,050.8 mls @ 100 mls/hr IV .[id number] [facility] Stop: 07/14/24 00:59 Last Admin: 06/14/24 12:34 Dose: 100 mls/hr Documented By: Infusion: 06/14/24 12:34 Dose: Infused Documented By: Infusion: 06/14/24 05:31 Dose: 0 mls/hr Documented By: Admin: 06/14/24 01:20 Dose: 100 mls/hr Documented By: KELLI Levothyroxine Sodium (Levothyroxine Sodium 50 Mcg Tablet) 50 mcg PO DAILYBB [facility] Stop: 07/13/24 06:29 Last Admin: 06/14/24 06:00 Dose: Not Given Documented By: Admin: 06/13/24 05:45 Dose: 50 mcg Documented By: KELLI Lorazepam (Lorazepam 2 Mg/1 Ml Vial) 2 mg IV UD PRN; Protocol PRN Reason: EtOH Withdrawal AWSS Score 8,9 Stop: 07/12/24 21:49 Last Admin: 06/14/24 03:51 Dose: 2 mg Documented By: Admin: 06/14/24 02:49 Dose: 2 mg Documented By: KELLI Lorazepam (Lorazepam 2 Mg/1 Ml Vial) 1 mg IV UD PRN; Protocol PRN Reason: EtOH Withdrawal AWSS Score 6,7 Stop: 07/12/24 21:49 Last Admin: 06/13/24 01:00 Dose: 1 mg Documented By: KELLI Metoprolol Tartrate (Metoprolol Tartrate 100 Mg Tab) 100 mg PO BID [facility] Stop: 07/13/24 08:59 Last Admin: 06/14/24 10:11 Dose: 100 mg Documented By: Admin: 06/13/24 22:25 Dose: 100 mg Documented By: Admin: 06/13/24 08:28 Dose: 100 mg Documented By: KRISHNA Miscellaneous (Carbohydrates For Hypoglycemia ) 15 - 30 gm PO UD PRN PRN Reason: Hypoglycemia Treatment Stop: 07/13/24 15:14 Last Admin: 06/13/24 18:22 Dose: 30 gm Documented By: KRISHNA Pantoprazole Sodium (Pantoprazole 40 Mg Tab) 40 mg PO QAM [facility] Stop: 07/13/24 08:59 Last Admin: 06/14/24 10:13 Dose: 40 mg Documented By: Admin: 06/13/24 08:07 Dose: 40 mg Documented By: KRISHNA
[2024-06-14 15:53] LABS: AFP Tumor Marker Serum 2.2 ng/mL (<6.1)
[2024-06-14] MEDS: SODIUM PHOSPHATE 15 MMOL in SODIUM CHLORIDE 0.9% 250 ML IV ONE (16:59)
[2024-06-14] MEDS: MAGNESIUM SULFATE / D5W 1 GM/100 ML BAG IV SCH (18:11)
[2024-06-14] MEDS: LORazepam 2 MG/1 ML VIAL IV ONE (21:46)
[2024-06-14] MEDS: GADOXETATE DISODIUM IV ONE (22:44)
--- NOTE | 2024-06-15 01:22 | Magnetic Resonance Report ---
Exam(s): MRI ABDOMEN W/WO Contrast IV Amt: eovist 10 ml EXAM: MR Abdomen Without and With Intravenous Contrast CLINICAL HISTORY: Reason for exam: liver protocol for hepatocellular carcinoma. TECHNIQUE: Multiplanar magnetic resonance images of the abdomen without and with intravenous contrast. CONTRAST: Patient received Eovist 10 ml of IV contrast COMPARISON: CT scan dated 06/12/2024 FINDINGS: The exam is limited due to motion artifact.. Liver: The liver is enlarged and of diffuse signal abnormality. There is a 6 cm inhomogeneous partially enhancing lesion in the left lobe of the liver. Gallbladder and bile ducts: No calcified stones. No ductal dilation. Pancreas: No ductal dilation. No mass. Spleen: No splenomegaly. Adrenals: No mass. Kidneys and ureters: No hydronephrosis. There is a 2 cm nonenhancing lesion in the left kidney.. Stomach and bowel: The stomach is relatively decompressed. There is air and stool noted in the colon.. Intraperitoneal space: No significant fluid collection. Soft tissues: Unremarkable. Vasculature: No abdominal aortic aneurysm. Lymph nodes: . No enlarged lymph nodes. IMPRESSION: Limited exam. The liver is enlarged and of diffuse signal left amount which may be due to fatty infiltration. There is a 6 cm inhomogeneous partially enhancing lesion in the left lobe of the liver. This may represent an atypical hemangioma. Malignancy cannot be excluded. There is a 2 cm left renal cyst. Electronically signed by: Pedro Luis Mart MD 06/15/24 01:21 AM
[2024-06-15] MEDS: SODIUM PHOSPHATE 3 MMOL/1 ML INFUSION IV STA (02:34)
[2024-06-15 07:20] LABS: BUN Creatinine Ratio 6.3 (10-20); Calcium 7.9 mg/dl (8.6-10.3); Creatinine Clr Calc Pharmacy 140.3 ml/min; Magnesium 1.9 mg/dl (1.7-2.4); Phosphorus 2.9 mg/dl (2.5-4.9); Potassium 3.6 mmol/L (3.5-5.1)
[2024-06-15] MEDS: FOLIC ACID 1 MG TAB PO SCH (08:35)
[2024-06-15] MEDS: THIAMINE HCL 100 MG TAB PO SCH (08:35)
--- NOTE | 2024-06-15 13:24 | Hospitalist Progress Note ---
Date of Service June 15, 2024 Assessment & Plan (1) Chest pain: Plan: Patient is 53 year old male with PMH paroxysmal atrial fibrillation, anticoagulated on Eliquis, HTN, obesity s/p gastric bypass 03/2022, prior history DM II that has improved since weight loss and reports is now prediabetic, PTSD, JACOB, ETOH abuse presented to ER with c/o chest pain today. CT chest: No PE or aortic dissection. R/O ACS. Risk factors: HTN, hyperlipidemia, DM, obesity, FH -echo unremarkable, troponin negative x3 -f/u with cardiology outpatient (2) Abdominal pain: (3) Elevated LFTs: Plan: Intermittent abdominal pain past week Denies current abdominal pain CT abd/pelvis: 1.Left hepatic lobe mass concerning for neoplasm. 2. No pulmonary embolus5 or aortic dissection. 3. There is a 2.0 x 1.7 cm right thyroid nodule. Ultrasound recommended if not already known. 4. 1.4 cm greatest diameter left adrenal nodule probably an adenoma but somewhat more dense than typical. If there is no history of malignancy consider a follow-up low dose, non-contrast adrenal CT or chemical-shift adrenal MRI in 12 months. If there is a history of malignancy recommend a low dose, non-emergent, non-contrast adrenal CT or chemical-shift adrenal MRI follow-up study. 5. There is mild thickening of the urinary bladder which is incompletely distended. Correlate with urinalysis for cystitis. Today Lipase: 149. T Bili: 1.8. AST:158. ALT: 66. Alk Phos: 112. INR: 1.0 (06/05/24: lipase: 534, T. bili: 1.7, AST: 499, ALT: 144, alk phos: 115) #ETOH Abuse #Alcohol Withdrawal -Drinks 12 beers daily -has significant withdrawal symptoms -thiamine and folic acid -Seizure precautions -continue ativan and gabapentin for withdrawal -PT/OT ordered given weakness (4) Hypertriglyceridemia: Plan: Outpatient labs 06/05/2024: Triglycerides >4425, total cholesterol: 1323, HDL <3, LDL: 55, lipase: 534, T. bili: 1.7, AST: 499, ALT: 144, alk phos: 115 Plan: -endocrine consult, appreciate recs -stop drip given patient status -replenish electrolytes as needed -500 cc fluids given feeling lightheaded with walking (5) Liver mass: Plan: CT Abd/pelvis: 1.4 cm greatest diameter left adrenal nodule probably an adenoma but somewhat more dense than typical. If there is no history of malignancy consider a follow-up low dose, non-contrast adrenal CT or chemical-shift adrenal MRI in 12 months. If there is a history of malignancy recommend a low dose, non-emergent, non-contrast adrenal CT or chemical-shift adrenal MRI follow-up study. -likely hepatocellular carcinoma in setting of significant alcohol use, also concerning regarding adrenal met -appreciate oncology consultation, can f/u for biopsy outpatient -f/u liver mass workup, labwork (6) PAF (paroxysmal atrial fibrillation): Plan: Anticoagulated on Eliquis Current sinus rhythm Hold Eliquis Continue nebivolol, diltiazem (7) Hypertension: Plan: Continue nebivolol, diltiazem (8) JACOB (obstructive sleep apnea): Plan: CPAP HS (9) PTSD (post-traumatic stress disorder): Plan: Continue bupropion (10) Obesity: Plan: -S/P gastric bypass -Gained 45 pounds in past 9 months (11) Thyroid nodule: Plan: CT Chest: There is a 2.0 x 1.7 cm right thyroid nodule. will need non emergent ultrasound to follow up Feeding/fluids: low fat Analgesia: tylenol Sedation: na Thromboprophylaxis: SCD Head up position: na Ulcer prophylaxis: protonix Glycemic control: insulin drip Spontaneous breathing trial: na Bowel care: start miralax prn Indwelling catheter removal: na Deescalation of antibiotics: na I spent a total of 45 minutes in direct patient care, including [id number] time with the patient and/or family, reviewing medical records, ordering and reviewing diagnostic tests, and coordinating care with other healthcare providers. This time includes: history taking, physical examination, medical decision making, counseling, ECG interpretation, imaging interpretation, lab interpretation, orders, and education, excluding time spent in the performance of separately billed services. Admission and Anticipated Discharge Date Admission Date: June 12, 2024 Subjective Patient seen and examined at bedside. Doing a little better today. He states that he is weak on his feet. Still having issues with withdrawal. Review of Systems Review of Systems: CONSTITUTIONAL: Patient denies fevers, chills, sweats and weight changes. EYES: Patient denies any visual symptoms. EARS, NOSE, AND THROAT: No difficulties with hearing. No symptoms of rhinitis or sore throat. CARDIOVASCULAR: Patient denies chest pains, palpitations, orthopnea and paroxysmal nocturnal dyspnea. RESPIRATORY: No dyspnea on exertion, no wheezing or cough. GI: No nausea, vomiting, diarrhea, constipation, abdominal pain, hematochezia or melena. : No urinary hesitancy or dribbling. No nocturia or urinary frequency. No abnormal urethral discharge. MUSCULOSKELETAL: No myalgias or arthralgias. NEUROLOGIC: No chronic headaches, no seizures. Patient denies numbness, tingling or weakness. PSYCHIATRIC: Patient denies problems with mood disturbance. No problems with anxiety. ENDOCRINE: No excessive urination or excessive thirst. DERMATOLOGIC: Patient denies any rashes or skin changes. Physical Exam Physical Exam: Gen: A&O 3 NAD HEENT: NCAT, EOMI, not icteric. External ears normal. No rhinorrhea. Moist mucous membranes. Neck: Supple, full range of motion, no observable masses, No meningeal sign. Lungs: No Respiratory distress. CV: RRR, no edema. Abdomen: Soft, nondistended, No rebound tenderness. MSK: No joint swelling, no redness. Skin: No rashes, petechiae, lesions. Normal color per patient. Neuro: Normal Gait, Grossly intact. Tremors noted Psych: appears to be withdrawing Results & Data Results & Data Vital Signs (Past 12 Hours) Vital Signs Temp Pulse Pulse Resp BP Pulse Ox O2 Del Method 06/15/24 12:10 36.6 C 79 19 144/89 H 94 Room Air 06/15/24 08:00 81 06/15/24 07:08 37.1 C 80 158/94 H 93 Room Air 06/15/24 04:09 36.6 C 78 18 136/85 95 Room Air Laboratory Results -personally reviewed, triglycerides 1656 Medications Administered Bupropion HCl (Bupropion Sr 150 Mg Tabcr) 150 mg PO DAILY [facility] Stop: 07/13/24 08:59 Last Admin: 06/15/24 08:33 Dose: 150 mg Documented By: Admin: 06/14/24 10:13 Dose: 150 mg Documented By: Admin: 06/13/24 08:06 Dose: 150 mg Documented By: KRISHNA Dextrose (Dextrose 50% 50 Ml Syringe) 25 ml IV UD PRN PRN Reason: BSG below 70mg/dL Stop: 07/13/24 15:09 Last Admin: 06/14/24 04:55 Dose: 25 ml Documented By: Admin: 06/14/24 04:01 Dose: 25 ml Documented By: Admin: 06/13/24 19:45 Dose: 25 ml Documented By: KELLI Diltiazem HCl (Diltiazem Hcl 120 Mg Capcr) 120 mg PO DAILY [facility] Stop: 07/13/24 08:59 Last Admin: 06/15/24 08:34 Dose: 120 mg Documented By: Admin: 06/14/24 10:11 Dose: 120 mg Documented By: Admin: 06/13/24 08:06 Dose: 120 mg Documented By: KRISHNA Fenofibrate (Fenofibrate Nanocrystallized 145 Mg Tablet) 145 mg PO QAM [facility] Stop: 07/13/24 08:59 Last Admin: 06/15/24 08:34 Dose: 145 mg Documented By: Admin: 06/14/24 10:11 Dose: 145 mg Documented By: Admin: 06/13/24 08:07 Dose: 145 mg Documented By: KRISHNA Fluticasone Propionate (Fluticasone Propionate Na Spr 16 Gm Btl) 2 sprays AGGIE DAILY [facility] Stop: 07/13/24 08:59 Last Admin: 06/15/24 08:33 Dose: 2 sprays Documented By: Admin: 06/14/24 10:11 Dose: 2 sprays Documented By: Admin: 06/13/24 08:07 Dose: 2 sprays Documented By: KRISHNA Folic Acid (Folic Acid 1 Mg Tab) 1 mg PO DAILY [facility]; Protocol Stop: 07/15/24 08:59 Last Admin: 06/15/24 08:35 Dose: 1 mg Documented By: KRISHNA Gabapentin (Gabapentin 600 Mg Tab) 600 mg PO Q24H [facility] Stop: 06/16/24 10:01 Last Admin: 06/14/24 10:11 Dose: 600 mg Documented By: NIMISHA Levothyroxine Sodium (Levothyroxine Sodium 50 Mcg Tablet) 50 mcg PO DAILYBB [facility] Stop: 07/13/24 06:29 Last Admin: 06/15/24 06:23 Dose: 50 mcg Documented By: Admin: 06/14/24 06:00 Dose: Not Given Documented By: Admin: 06/13/24 05:45 Dose: 50 mcg Documented By: KRT Lorazepam (Lorazepam 2 Mg/1 Ml Vial) 2 mg IV UD PRN; Protocol PRN Reason: EtOH Withdrawal AWSS Score 8,9 Stop: 07/12/24 21:49 Last Admin: 06/14/24 03:51 Dose: 2 mg Documented By: Admin: 06/14/24 02:49 Dose: 2 mg Documented By: KRT Lorazepam (Lorazepam 2 Mg/1 Ml Vial) 1 mg IV UD PRN; Protocol PRN Reason: EtOH Withdrawal AWSS Score 6,7 Stop: 07/12/24 21:49 Last Admin: 06/15/24 02:08 Dose: 1 mg Documented By: Admin: 06/13/24 01:00 Dose: 1 mg Documented By: KELLI Metoprolol Tartrate (Metoprolol Tartrate 100 Mg Tab) 100 mg PO BID [facility] Stop: 07/13/24 08:59 Last Admin: 06/15/24 08:34 Dose: 100 mg Documented By: Admin: 06/14/24 23:14 Dose: 100 mg Documented By: Admin: 06/14/24 10:11 Dose: 100 mg Documented By: Admin: 06/13/24 22:25 Dose: 100 mg Documented By: Admin: 06/13/24 08:28 Dose: 100 mg Documented By: KRISHNA Miscellaneous (Carbohydrates For Hypoglycemia ) 15 - 30 gm PO UD PRN PRN Reason: Hypoglycemia Treatment Stop: 07/13/24 15:14 Last Admin: 06/13/24 18:22 Dose: 30 gm Documented By: KRISHNA Pantoprazole Sodium (Pantoprazole 40 Mg Tab) 40 mg PO QAM [facility] Stop: 07/13/24 08:59 Last Admin: 06/15/24 08:34 Dose: 40 mg Documented By: Admin: 06/14/24 10:13 Dose: 40 mg Documented By: Admin: 06/13/24 08:07 Dose: 40 mg Documented By: KRISHNA Thiamine HCl (Thiamine Hcl 100 Mg Tab) 100 mg PO DAILY [facility]; Protocol Stop: 07/15/24 08:59 Last Admin: 06/15/24 08:35 Dose: 100 mg Documented By: KRISHNA
[2024-06-15] MEDS: SODIUM CHLORIDE 0.9% 500 ML IV SCH (13:57)
[2024-06-15] MEDS: ACETAMINOPHEN 325 MG TAB PO PRN (19:42)
[2024-06-16 08:21] LABS: BUN Creatinine Ratio 7.9 (10-20); Calcium 8.4 mg/dl (8.6-10.3); Magnesium 1.8 mg/dl (1.7-2.4); Potassium 3.8 mmol/L (3.5-5.1)
--- NOTE | 2024-06-16 12:07 | Hospitalist Progress Note ---
Date of Service June 16, 2024 Assessment & Plan (1) Chest pain: Plan: Patient is 53 year old male with PMH paroxysmal atrial fibrillation, anticoagulated on Eliquis, HTN, obesity s/p gastric bypass 03/2022, prior history DM II that has improved since weight loss and reports is now prediabetic, PTSD, JACOB, ETOH abuse presented to ER with c/o chest pain today. -CT chest: No PE or aortic dissection. -Risk factors: HTN, hyperlipidemia, DM, obesity, FH -echo unremarkable, troponin negative x3 -f/u with cardiology outpatient (2) Abdominal pain: (3) Elevated LFTs: Plan: Intermittent abdominal pain past week Denies current abdominal pain CT abd/pelvis: 1.Left hepatic lobe mass concerning for neoplasm. 2. No pulmonary embolus5 or aortic dissection. 3. There is a 2.0 x 1.7 cm right thyroid nodule. Ultrasound recommended if not already known. 4. 1.4 cm greatest diameter left adrenal nodule probably an adenoma but somewhat more dense than typical. If there is no history of malignancy consider a follow-up low dose, non-contrast adrenal CT or chemical-shift adrenal MRI in 12 months. If there is a history of malignancy recommend a low dose, non-emergent, non-contrast adrenal CT or chemical-shift adrenal MRI follow-up study. 5. There is mild thickening of the urinary bladder which is incompletely distended. Correlate with urinalysis for cystitis. Alcohol Abuse Alcohol Withdrawal -Drinks 12 beers daily -has significant withdrawal symptoms -thiamine and folic acid -Seizure precautions -continue ativan and gabapentin for withdrawal -PT/OT ordered given weakness -start fluids at 125cc/hr given weakness -start multivitamin (4) Hypertriglyceridemia: Plan: Outpatient labs 06/05/2024: Triglycerides >4425, total cholesterol: 1323, HDL <3, LDL: 55, lipase: 534, T. bili: 1.7, AST: 499, ALT: 144, alk phos: 115 -s/p insulin drip, went from 7000 to 800 Plan: -endocrine consult, appreciate recs -continues to downtrend (5) Liver mass: Plan: CT Abd/pelvis: 1.4 cm greatest diameter left adrenal nodule probably an adenoma but somewhat more dense than typical. If there is no history of malignancy consider a follow-up low dose, non-contrast adrenal CT or chemical-shift adrenal MRI in 12 months. If there is a history of malignancy recommend a low dose, non-emergent, non-contrast adrenal CT or chemical-shift adrenal MRI follow-up study. -likely atypical hemangioma vs. hepatocellular carcinoma in setting of significant alcohol use, also concerning regarding adrenal met -appreciate oncology consultation, can f/u for biopsy outpatient (6) PAF (paroxysmal atrial fibrillation): Plan: -Anticoagulated on Eliquis -Current sinus rhythm -restart eliquis on discharge -Continue nebivolol, diltiazem (7) Hypertension: Plan: -Continue nebivolol, diltiazem (8) JACOB (obstructive sleep apnea): Plan: -CPAP HS (9) PTSD (post-traumatic stress disorder): Plan: -Continue bupropion (10) Obesity: Plan: -S/P gastric bypass -Gained 45 pounds in past 9 months (11) Thyroid nodule: Plan: CT Chest: There is a 2.0 x 1.7 cm right thyroid nodule. will need non emergent ultrasound to follow up Feeding/fluids: low fat Analgesia: tylenol Sedation: na Thromboprophylaxis: SCD Head up position: na Ulcer prophylaxis: protonix Glycemic control: insulin drip Spontaneous breathing trial: na Bowel care: miralax prn Indwelling catheter removal: na Deescalation of antibiotics: na I spent a total of 450minutes in direct patient care, including [id number] time with the patient and/or family, reviewing medical records, ordering and reviewing diagnostic tests, and coordinating care with other healthcare providers. This time includes: history taking, physical examination, medical decision making, counseling, ECG interpretation, imaging interpretation, lab interpretation, orders, and education, excluding time spent in the performance of separately billed services. Admission and Anticipated Discharge Date Admission Date: June 12, 2024 Subjective Patient seen and examined at bedside. Patient doing better today. He still does not feel well overall but feels better than yesterday. Discussed that we are getting close to discharge, his triglycerides have improved quite a bit and the worst of the alcohol withdrawal appears to be behind him. Discussed will will need close follow-up with liver clinic. Review of Systems Review of Systems: CONSTITUTIONAL: Patient denies fevers, chills, sweats and weight changes. EYES: Patient denies any visual symptoms. EARS, NOSE, AND THROAT: No difficulties with hearing. No symptoms of rhinitis or sore throat. CARDIOVASCULAR: Patient denies chest pains, palpitations, orthopnea and paroxysmal nocturnal dyspnea. RESPIRATORY: No dyspnea on exertion, no wheezing or cough. GI: No nausea, vomiting, diarrhea, constipation, abdominal pain, hematochezia or melena. : No urinary hesitancy or dribbling. No nocturia or urinary frequency. No abnormal urethral discharge. MUSCULOSKELETAL: No myalgias or arthralgias. NEUROLOGIC: No chronic headaches, no seizures. Patient denies numbness, tingling or weakness. PSYCHIATRIC: Patient denies problems with mood disturbance. No problems with anxiety. ENDOCRINE: No excessive urination or excessive thirst. DERMATOLOGIC: Patient denies any rashes or skin changes. Physical Exam Physical Exam: Gen: A&O 3 NAD HEENT: NCAT, EOMI, not icteric. External ears normal. No rhinorrhea. Moist mucous membranes. Neck: Supple, full range of motion, no observable masses, No meningeal sign. Lungs: No Respiratory distress. CV: RRR, no edema. Abdomen: Soft, nondistended, No rebound tenderness. MSK: No joint swelling, no redness. Skin: No rashes, petechiae, lesions. Normal color per patient. Neuro: Normal Gait, Grossly intact. Tremors noted, improving Psych: appears to be withdrawing, improving Results & Data Results & Data Vital Signs (Past 12 Hours) Vital Signs Temp Pulse Pulse Resp BP Pulse Ox O2 Del Method 06/16/24 09:10 Room Air 06/16/24 07:53 37.1 C 76 20 163/101 H 95 Room Air 06/16/24 02:48 37 C 82 16 131/76 94 Room Air 06/16/24 01:06 86 Laboratory Results -personally reviewed, low chloride and sodium suggestive of dehydration, triglycerides continue to come down to 850 Medications Administered Acetaminophen (Acetaminophen 325 Mg Tab) 650 mg PO Q4H PRN PRN Reason: Pain or Fever Stop: 07/12/24 21:49 Last Admin: 06/15/24 19:42 Dose: 650 mg Documented By: YASMANY Bupropion HCl (Bupropion Sr 150 Mg Tabcr) 150 mg PO DAILY [facility] Stop: 07/13/24 08:59 Last Admin: 06/16/24 08:13 Dose: 150 mg Documented By: Admin: 06/15/24 08:33 Dose: 150 mg Documented By: Admin: 06/14/24 10:13 Dose: 150 mg Documented By: Admin: 06/13/24 08:06 Dose: 150 mg Documented By: KRISHNA Dextrose (Dextrose 50% 50 Ml Syringe) 25 ml IV UD PRN PRN Reason: BSG below 70mg/dL Stop: 07/13/24 15:09 Last Admin: 06/14/24 04:55 Dose: 25 ml Documented By: Admin: 06/14/24 04:01 Dose: 25 ml Documented By: Admin: 06/13/24 19:45 Dose: 25 ml Documented By: KELLI Diltiazem HCl (Diltiazem Hcl 120 Mg Capcr) 120 mg PO DAILY [facility] Stop: 07/13/24 08:59 Last Admin: 06/16/24 08:13 Dose: 120 mg Documented By: Admin: 06/15/24 08:34 Dose: 120 mg Documented By: Admin: 06/14/24 10:11 Dose: 120 mg Documented By: Admin: 06/13/24 08:06 Dose: 120 mg Documented By: KRISHNA Fenofibrate (Fenofibrate Nanocrystallized 145 Mg Tablet) 145 mg PO QAM [facility] Stop: 07/13/24 08:59 Last Admin: 06/16/24 08:14 Dose: 145 mg Documented By: Admin: 06/15/24 08:34 Dose: 145 mg Documented By: Admin: 06/14/24 10:11 Dose: 145 mg Documented By: Admin: 06/13/24 08:07 Dose: 145 mg Documented By: KRISHNA Fluticasone Propionate (Fluticasone Propionate Na Spr 16 Gm Btl) 2 sprays AGGIE DAILY [facility] Stop: 07/13/24 08:59 Last Admin: 06/16/24 08:14 Dose: 2 sprays Documented By: Admin: 06/15/24 08:33 Dose: 2 sprays Documented By: Admin: 06/14/24 10:11 Dose: 2 sprays Documented By: Admin: 06/13/24 08:07 Dose: 2 sprays Documented By: KRISHNA Folic Acid (Folic Acid 1 Mg Tab) 1 mg PO DAILY [facility]; Protocol Stop: 07/15/24 08:59 Last Admin: 06/16/24 08:13 Dose: 1 mg Documented By: Admin: 06/15/24 08:35 Dose: 1 mg Documented By: KRISHNA Levothyroxine Sodium (Levothyroxine Sodium 50 Mcg Tablet) 50 mcg PO DAILYBB [facility] Stop: 07/13/24 06:29 Last Admin: 06/16/24 06:08 Dose: 50 mcg Documented By: Admin: 06/15/24 06:23 Dose: 50 mcg Documented By: Admin: 06/14/24 06:00 Dose: Not Given Documented By: Admin: 06/13/24 05:45 Dose: 50 mcg Documented By: KRT Lorazepam (Lorazepam 2 Mg/1 Ml Vial) 2 mg IV UD PRN; Protocol PRN Reason: EtOH Withdrawal AWSS Score 8,9 Stop: 07/12/24 21:49 Last Admin: 06/14/24 03:51 Dose: 2 mg Documented By: Admin: 06/14/24 02:49 Dose: 2 mg Documented By: KRT Lorazepam (Lorazepam 2 Mg/1 Ml Vial) 1 mg IV UD PRN; Protocol PRN Reason: EtOH Withdrawal AWSS Score 6,7 Stop: 07/12/24 21:49 Last Admin: 06/16/24 10:16 Dose: 1 mg Documented By: Admin: 06/15/24 02:08 Dose: 1 mg Documented By: Admin: 06/13/24 01:00 Dose: 1 mg Documented By: KELLI Metoprolol Tartrate (Metoprolol Tartrate 100 Mg Tab) 100 mg PO BID [facility] Stop: 07/13/24 08:59 Last Admin: 06/16/24 08:13 Dose: 100 mg Documented By: Admin: 06/15/24 20:19 Dose: 100 mg Documented By: Admin: 06/15/24 08:34 Dose: 100 mg Documented By: Admin: 06/14/24 23:14 Dose: 100 mg Documented By: Admin: 06/14/24 10:11 Dose: 100 mg Documented By: Admin: 06/13/24 22:25 Dose: 100 mg Documented By: Admin: 06/13/24 08:28 Dose: 100 mg Documented By: KRISHNA Miscellaneous (Carbohydrates For Hypoglycemia ) 15 - 30 gm PO UD PRN PRN Reason: Hypoglycemia Treatment Stop: 07/13/24 15:14 Last Admin: 06/13/24 18:22 Dose: 30 gm Documented By: KRISHNA Pantoprazole Sodium (Pantoprazole 40 Mg Tab) 40 mg PO QAM [facility] Stop: 07/13/24 08:59 Last Admin: 06/16/24 08:14 Dose: 40 mg Documented By: Admin: 06/15/24 08:34 Dose: 40 mg Documented By: Admin: 06/14/24 10:13 Dose: 40 mg Documented By: Admin: 06/13/24 08:07 Dose: 40 mg Documented By: KRISHNA Thiamine HCl (Thiamine Hcl 100 Mg Tab) 100 mg PO DAILY [facility]; Protocol Stop: 07/15/24 08:59 Last Admin: 06/16/24 08:14 Dose: 100 mg Documented By: Admin: 06/15/24 08:35 Dose: 100 mg Documented By: KRISHNA (1) Chest pain Chest pain type: other chest pain Qualified Code(s): R07.89 - Other chest pain
[2024-06-16] MEDS: MULTIVITAMIN CHEWABLE TAB PO SCH (12:09)
[2024-06-16] MEDS: SODIUM CHLORIDE 0.9% 1,000 ML IV SCH (12:09)
[2024-06-17] MEDS: LABETALOL HCL IV 5 MG/ML 20ML IV STA (04:39)
[2024-06-17 06:32] LABS: BUN Creatinine Ratio 8.6 (10-20); Calcium 8.7 mg/dl (8.6-10.3); Creatinine Clr Calc Pharmacy 137.9 ml/min; Magnesium 1.7 mg/dl (1.7-2.4); Phosphorus 3.1 mg/dl (2.5-4.9); Potassium 3.7 mmol/L (3.5-5.1)
[2024-06-17 12:40] VITALS: PULSE 79; RESP 16; TEMP 97.7; O2SAT 98
[2024-06-17 14:18] VITALS: BP 165/79
--- NOTE | 2024-06-17 16:00 | Discharge Summary ---
Discharge Summary Date of Service June 17, 2024 Principal Dx & Hospital Course #1 = Principal Diagnosis (1) Chest pain: Patient is 53 year old male with PMH paroxysmal atrial fibrillation, anticoagulated on Eliquis, HTN, obesity s/p gastric bypass 03/2022, prior history DM II that has improved since weight loss and reports is now prediabetic, PTSD, JACOB, ETOH abuse presented to ER with c/o chest pain today. -CT chest: No PE or aortic dissection. -Risk factors: HTN, hyperlipidemia, DM, obesity, FH -echo unremarkable, troponin negative x3 -f/u with cardiology outpatient (2) Abdominal pain: (3) Elevated LFTs: Intermittent abdominal pain past week Denies current abdominal pain CT abd/pelvis: 1.Left hepatic lobe mass concerning for neoplasm. 2. No pulmonary embolus5 or aortic dissection. 3. There is a 2.0 x 1.7 cm right thyroid nodule. Ultrasound recommended if not already known. 4. 1.4 cm greatest diameter left adrenal nodule probably an adenoma but somewhat more dense than typical. If there is no history of malignancy consider a follow-up low dose, non-contrast adrenal CT or chemical-shift adrenal MRI in 12 months. If there is a history of malignancy recommend a low dose, non-emergent, non-contrast adrenal CT or chemical-shift adrenal MRI follow-up study. 5. There is mild thickening of the urinary bladder which is incompletely distended. Correlate with urinalysis for cystitis. Alcohol Abuse Alcohol Withdrawal -Drinks 12 beers daily -has significant withdrawal symptoms, much improved -discussed the importance of staying sober (4) Hypertriglyceridemia: Outpatient labs 06/05/2024: Triglycerides >4425, total cholesterol: 1323, HDL <3, LDL: 55, lipase: 534, T. bili: 1.7, AST: 499, ALT: 144, alk phos: 115 -s/p insulin drip, went from 7000 to 800 Plan: -endocrine consult, appreciate recs -f/u with cardiology outpatient (5) Liver mass: CT Abd/pelvis: 1.4 cm greatest diameter left adrenal nodule probably an adenoma but somewhat more dense than typical. If there is no history of malignancy consider a follow-up low dose, non-contrast adrenal CT or chemical-shift adrenal MRI in 12 months. If there is a history of malignancy recommend a low dose, non-emergent, non-contrast adrenal CT or chemical-shift adrenal MRI follow-up study. -likely atypical hemangioma vs. hepatocellular carcinoma in setting of significant alcohol use, also concerning regarding adrenal met -appreciate oncology consultation, can f/u for biopsy outpatient (6) PAF (paroxysmal atrial fibrillation): -Anticoagulated on Eliquis -Current sinus rhythm -restart eliquis on discharge -Continue nebivolol, diltiazem (7) Hypertension: -Continue nebivolol, diltiazem (8) JACOB (obstructive sleep apnea): -CPAP HS (9) PTSD (post-traumatic stress disorder): -Continue bupropion (10) Obesity: -S/P gastric bypass -Gained 45 pounds in past 9 months (11) Thyroid nodule: CT Chest: There is a 2.0 x 1.7 cm right thyroid nodule. will need non emergent ultrasound to follow up Notes For Next Care Provider Patient is 53 year old male with PMH paroxysmal atrial fibrillation, anticoagulated on Eliquis, HTN, obesity s/p gastric bypass 03/2022, prior history DM II that has improved since weight loss and reports is now prediabetic, PTSD, JACOB, ETOH abuse presented to ER with c/o chest pain. In the ED, noted to have super high triglycerides, admitted to medicine. On medicine, echo and troponins reassuring. Started on insulin drip for elevated triglycerides, endocrinology consulted. Patient had significant alcohol withdrawal c/b hallucinations, improved with medication management. Oncology consulted for liver mass, will need outpatient f/u for biopsy as imaging nonconclusive. On 06/17/2024 patient medically ready for discharge home. Also needs thyroid imaging f/u. Medication Changes From Visit -tylenol, folic acid, thiamine, atarax, zofran, mulivitamin Admission HPI Per Admitting Provider Patient is 53 year old male with PMH paroxysmal atrial fibrillation, anticoagulated on Eliquis, HTN, obesity s/p gastric bypass 03/2022, prior history DM II that has improved since weight loss and reports is now prediabetic, PTSD, JACOB, ETOH abuse presented to ER with c/o chest pain today. Patient states this morning sitting at desk and he felt lightheaded like he was going pass out he also reported chest pain to left side of chest. He describes pain as ache and states pain is intermittent. He also reports some left jaw numbness sensation that is intermittent. CP rated 4 out of 10 on pain scale. He reports intermittent palpitations and feels palpitations occur with the chest pain. Patient also complains of upper abdominal pain for past week that he describes as "mild" and he feels like pain is intermittent. States always feels cold and has chills but denies any known fever. Reports past 9 months gained 45 pounds. Consumes 8-12 beers daily. Last drink was yesterday. In past history tremors with ETOH withdrawal and states drinks more and tremors resolve. Denies history seizure or hallucinations. Reports been eating hard candy recently. Moved to [facility] 1 year ago for work. Family still in [place]. Denies fever, N/V/D/C, PLASENCIA, syncope, vision changes, neck pain, SOB, orthopnea, cough, sore throat, otalgia, rhinorrhea, paresthesias, weakness, extremity weakness, extremity edema, rashes, urinary symptoms. Denies history pancreatitis, DVT, PE. In ER given nitro and patient reports minimal relief and states given morphine and felt that helped with chest pain. States CP is intermittent. Currently rates pain 5 out of 10 on pain scale. Denies any jaw discomfort or numbness currently. States still feels like having palpitations and patient states that he feels anxious. He reports a lot of stress and anxiety with his job as well as being away from family. Per outpatient chart review was seen in cardiology clinic today 06/11/2024. He was started on fenofibrate couple of days ago. Outpatient labs 06/05/2024: Triglycerides >4425, total cholesterol: 1323, HDL <3, LDL: 55, lipase: 534, T. bili: 1.7, AST: 499, ALT: 144, alk phos: 115 WBC: 7.4 Hgb: 13.9 A1c: 5.9 TSH: 4.5, free T4: 0.7 Discharge Exam Gen: A&O 3 NAD HEENT: NCAT, EOMI, not icteric. External ears normal. No rhinorrhea. Moist mucous membranes. Neck: Supple, full range of motion, no observable masses, No meningeal sign. Lungs: No Respiratory distress. CV: RRR, no edema. Abdomen: Soft, nondistended, No rebound tenderness. MSK: No joint swelling, no redness. Skin: No rashes, petechiae, lesions. Normal color per patient. Neuro: Normal Gait, Grossly intact. Tremors noted, improving Psych: appears to be withdrawing, improving Updated Medication List Medication Instructions Recorded Confirmed Type apixaban 5 mg tablet (Eliquis) 5 mg PO BID 11/27/23 06/12/24 History azelastine 137 mcg (0.1 %) nasal 2 spray intranasal BID PRN nasal 11/27/23 06/12/24 Rx spray congestion #30 mL bupropion HCl 150 mg tablet,12 hr 150 mg PO DAILY 11/27/23 06/12/24 History sustained-release (Wellbutrin SR) diltiazem HCl 120 mg capsule,24 120 mg PO DAILY 11/27/23 06/12/24 History hr,extended release fluticasone propionate 50 2 spray intranasal DAILY #16 grams 11/27/23 06/12/24 Rx mcg/actuation nasal spray,suspension ipratropium bromide 21 mcg (0.03 2 spray intranasal TID PRN 11/27/23 06/12/24 Rx %) nasal spray postnasal drip #30 mL nebivolol 20 mg tablet (Bystolic) 20 mg PO DAILY 11/27/23 06/12/24 History fenofibrate nanocrystallized 145 145 mg PO QAM 06/12/24 06/12/24 History mg tablet levothyroxine 50 mcg tablet 50 mcg PO QAM 06/12/24 06/12/24 History omeprazole 20 mg capsule,delayed 20 mg PO QAM 06/12/24 06/12/24 History release acetaminophen 325 mg tablet 650 mg (2 x 325 mg) PO Q4H PRN 06/17/24 Rx pain #30 tabs folic acid 1 mg tablet 1 mg PO DAILY #30 tabs 06/17/24 Rx hydroxyzine HCl 25 mg tablet 25 mg PO BID PRN anxiety #30 tabs 06/17/24 Rx ondansetron 4 mg disintegrating 4 mg PO Q8H PRN nausea and 06/17/24 Rx tablet vomiting 7 days #30 tabs pediatric onetihah-drnc-xqs 1 tab PO QAM #30 tabs 06/17/24 Rx (Flintstones Complete (iron) chewable tablet) thiamine HCl (vitamin B1) 100 mg 100 mg PO DAILY #30 tabs 06/17/24 Rx tablet Hospital Stay Data Consultations 06/12/24 17:41 ED Decision to Admit Stat 06/13/24 08:00 Consult Oncology Routine 06/13/24 08:08 Consult Endocrinology Routine 06/14/24 11:23 Consult Behavioral Health Liaison Routine Diagnostic Imagining Performed 06/12/24 14:03 CT abd pelvis IV con only Stat CT angio chest PE protocol Stat 06/14/24 15:50 MR abdomen wo/w con Urgent Pending Results Patient Have Any Pending Studies at Discharge: Yes Discharge Instructions Given to Patient (Per Discharging Provider) 1. Please follow up with cardiology, oncology liver clinic, PCP. 2. Please stop drinking alcohol. 3. Stay hydrated. 4. Follow up outpatient for thyroid imaging. Total Time Total Time Spent Total Time Spent (In Minutes): I spent a total of 35 minutes in direct patient care, including [id number] time with the patient and/or family, reviewing medical records, ordering and reviewing diagnostic tests, and coordinating care with other healthcare providers. This time includes: history taking, physical examination, medical decision making, counseling, ECG interpretation, imaging interpretation, lab interpretation, orders, and education, excluding time spent in the performance of separately billed services.
--- NOTE | 2024-06-19 15:33 | Electrocardiogram Report ---
Test Reason : Blood Pressure : */* mmHG Vent. Rate : 73 BPM Atrial Rate : 73 BPM P-R Int : 170 ms QRS Dur : 82 ms QT Int : 392 ms P-R-T Axes : 68 52 54 degrees QTcB Int : 431 ms Normal sinus rhythm Normal ECG When compared with ECG of 13-Jun-2024 04:57, T wave inversion no longer evident in Anterior leads Confirmed by Christopher Mcfarlane ([id number]) on 06/19/2024 3:33:14 PM Referred By: REFERRED SELF Confirmed By: Christopher Mcfarlane
== END 2024-06-17 15:01 | disposition home or self-care (01) | DRG 436 ==
LOC: ED 11:55 → SUATTDRO 18:33 → EDINP 18:33 → 2S 21:51